=== PATIENT | female | born 1960 | race Caucasian/White ===

== ENCOUNTER 2016-08-09 09:46 | Outpatient (CLI) | payer MEDICAID | END 2016-08-09 09:47 | disposition home or self-care (01) | DX: G40.209 Localization-related (focal) (partial) symptomatic epilepsy and epileptic syndromes with complex partial seizures, not intractable, without status epilepticus (principal) ==

== ENCOUNTER 2016-09-08 12:07 | Outpatient (CLI) | payer MEDICAID ==
[2016-09-08] MEDS ORDERED: GADOBUTROL 10 MMOL/10 ML VIAL IVP ONE (13:14)
== END 2016-09-08 12:08 | disposition home or self-care (01) ==
DX: H53.8 Other visual disturbances (principal)
CPT/HCPCS: 70553; A9585

== ENCOUNTER 2016-11-17 10:26 | Outpatient (CLI) | payer MEDICAID | END 2016-11-17 10:27 | disposition home or self-care (01) | DX: F43.12 Post-traumatic stress disorder, chronic (principal); F33.2 Major depressive disorder, recurrent severe without psychotic features; G47.00 Insomnia, unspecified ==

== ENCOUNTER 2017-01-09 15:39 | Emergency (ER) | payer MEDICAID ==
--- NOTE | 2017-01-09 15:43 | ED Physician Documentation ---
PD HPI FEMALE - Stated complaint Stated Complaint: FEMALE - History obtained from History obtained from: Patient - History of Present Illness Timing - onset: How many days ago (5) Timing - duration: Days (5) Timing - details: Gradual onset, Still present, Waxing and waning Associated symptoms: Pelvic pain, Vaginal bleeding. No: Fever, Abdominal pain, Back pain, Vaginal pain, Vaginal discharge, Genital sore/lesion, Dysuria, Urinary frequency Contributing factors: Tubal ligation. No: , Hysterectomy, Sexually active Similar symptoms before: Has not had sx before (has slightly irregular menses still, but had onset 5 days ago of menstrual type bleeding which increased to brisker and brighter red. She states she is only using about 5 pads daily, but the are saturated. Feeling of general lightheadedness. No fever, no vaginal discharge.) Recently seen: Not recently seen Review of Systems Constitutional: denies: Fever, Chills Throat: denies: Sore throat Cardiac: denies: Chest pain / pressure Respiratory: denies: Dyspnea, Cough GI: denies: Vomiting, Diarrhea : denies: Dysuria, Frequency Neurologic: reports: Generalized weakness. denies: Near syncope Endocrine: denies: Weight loss, Weight gain, Easy bruising / bleeding Immunocompromised: denies: Immunocompromised PD PAST MEDICAL HISTORY - Past Medical History Cardiovascular: None Respiratory: None Neuro: Head injury, Seizure disorder Endocrine/Autoimmune: None GI: GERD, Other HEENT: None Psych: Depression, Bipolar disorder, Other Derm: None - Past Surgical History Past Surgical History: Yes Ortho: Other - Present Medications Home Medications: Ambulatory Orders Medication Instructions Recorded Confirmed Cholecalciferol (Vitamin D3) 5,000 units PO ONCE 01/28/14 08/07/15 [Vitamin D] Docusate Sodium 100 mg PO BID 01/28/14 08/07/15 Lamotrigine [Lamictal] 200 mg PO BID 01/28/14 08/07/15 Levetiracetam [Keppra] 1,500 mg PO BID 01/28/14 08/07/15 Magnesium 250 mg PO QPM 01/28/14 08/07/15 Multivitamin [Multivitamins] 1 tab PO DAILY 01/28/14 08/07/15 Thiamine HCl [Vitamin B-1] 50 mg PO DAILY 01/28/14 08/07/15 Tolterodine [Detrol LA] 2 mg PO BID 01/28/14 08/07/15 raNITIdine [Zantac] 150 mg PO BID 01/28/14 08/07/15 Albuterol Sulfate [Proair Hfa 8.5 gm IH QID #1 hfa.aer.ad 08/07/15 Inhaler] Hydrocodone/Acetaminophen [[place] 1 each PO Q6H PRN #20 tablet 08/07/15 5-325 Tablet] Oseltamivir [Tamiflu] 75 mg PO BID #10 capsule 08/07/15 predniSONE [Deltasone] 40 mg PO DAILY 5 Days 08/07/15 Hydrocodone/Acetaminophen [[place] 1 each PO Q6H PRN #10 tablet 01/09/17 5-325 Tablet] Medroxyprogesterone Acetate 5 mg PO DAILY #5 tablet 01/09/17 [Provera] Naproxen 375 mg PO BID #15 tablet 01/09/17 - Allergies Allergies/Adverse Reactions: Allergies Allergy/AdvReac Type Severity Reaction Status Date / Time codeine Allergy Unknown Verified 01/09/17 15:49 gluten Allergy Unknown Verified 01/09/17 15:49 Penicillins Allergy Unknown Verified 01/09/17 15:49 - Social History Does the pt smoke?: No Smoking Status: Never smoker Does the pt drink ETOH?: No Does the pt have substance abuse?: No - POLST Patient has POLST: No PD ED PE NORMAL - Vitals Vital signs reviewed: Yes - General General: Alert and oriented X 3, No acute distress, Well developed/nourished - Neck Neck: Supple, no meningeal sign, No adenopathy - Cardiac Cardiac: RRR, No murmur - Respiratory Respiratory: Clear bilaterally - Abdomen Abdomen: Normal bowel sounds, Soft, Non distended, No organomegaly, Other (mild suprapubic tenderness without guarding.) - Female Female : Deferred - Derm Derm: Normal color, Warm and dry - Neuro Neuro: Alert and oriented X 3, No motor deficit, Normal speech Results - Vitals Vitals: Vital Signs - 24 hr 01/09/17 01/09/17 01/09/17 15:47 18:36 18:43 Temperature 36.7 C 36.6 C Heart Rate 56 L 49 L 55 L Respiratory 18 18 Rate Blood Pressure 129/85 H 140/51 H O2 Saturation 98 99 Oxygen O2 Source Room air - Labs Labs: Laboratory Tests 01/09/17 01/09/17 01/09/17 16:33 16:33 16:46 WBC 6.6 RBC 3.76 L Hgb 11.2 L Hct 34.3 L MCV 91.0 MCH 29.9 MCHC 32.8 RDW 13.8 Plt Count 236 MPV 8.5 Neut # 3.4 Lymph # 2.1 [place] # 0.8 Eos # 0.3 Baso # 0.1 Absolute Nucleated RBC 0.00 Nucleated RBCs 0.0 Sodium 138 Potassium 4.4 Chloride 104 Carbon Dioxide 27 Anion Gap 7.0 BUN 10 Creatinine 1.0 Estimated GFR (MDRD) 58 L Glucose 98 Calcium 9.2 Total Bilirubin 0.8 AST 19 ALT 20 Alkaline Phosphatase 85 Total Protein 7.1 Albumin 3.9 Globulin 3.2 Albumin/Globulin Ratio 1.2 Lipase 15 L Urine Color YELLOW Urine Clarity HAZY Urine pH 6.5 Ur Specific [place] <=1.005 Urine Protein NEGATIVE Urine Glucose (UA) NEGATIVE Urine Ketones NEGATIVE Urine Occult Blood LARGE H Urine Nitrite NEGATIVE Urine Bilirubin NEGATIVE Urine Urobilinogen 0.2 (NORMAL) Ur Leukocyte Esterase NEGATIVE Urine RBC 11-25 H Urine WBC 0-3 Ur Squamous Epith Cells NONE SEEN Urine Bacteria None Seen Ur Microscopic Review INDICATED Urine Culture Comments NOT INDICATED - Rads (name of study) pelvic U/S Radiology: Prelim report reviewed (posterior fibroid. Otherwise heterogenous endometrium without acute findings. ) PD MEDICAL DECISION MAKING - ED course Complexity details: reviewed results, considered differential, d/w patient Departure - Departure Disposition: 01 Home, Self Care Clinical Impression: Dysfunctional uterine bleeding Uterine fibroid Qualifiers: Uterine leiomyoma location: intramural Qualified Code(s): D25.1 - Intramural leiomyoma of uterus Condition: Stable Record reviewed to determine appropriate education?: Yes Instructions: ED Bleed Irregular Vaginal Follow-Up: Zenobia Rasheed ARNP [Primary Care Provider] - Mynor Savage MD [Provider Admit Priv/Credential] - Prescriptions: Naproxen 375 mg PO BID #15 tablet Hydrocodone/Acetaminophen [[place] 5-325 Tablet] 1 each PO Q6H PRN #10 tablet PRN Reason: Pain Medroxyprogesterone Acetate [Provera] 5 mg PO DAILY #5 tablet Comments: Drink lots of fluids. Naproxen twice daily for a week. Provera daily for 5 days. Add Tylenol or hydrocodone as needed for pains. Call [facility] and follow up with one of their providers in the next few days. Discharge Date/Time: 01/09/17 18:44
[2017-01-09] MEDS ORDERED: KETOROLAC 60 MG/2 ML VIAL IVP STA (16:21)
[2017-01-09] MEDS ORDERED: KETOROLAC 30 MG/ML VIAL ONE (16:23)
[2017-01-09 16:51] LABS: BASOPHILS # (AUTO) 0.1 10^3/uL (0.0-0.1); EOSINOPHILS # (AUTO) 0.3 10^3/uL (0.0-0.7); EOSINOPHILS % (AUTO) 4.3 %; HCT - HEMATOCRIT 34.3 % (37.0-47.0); HGB - HEMOGLOBIN 11.2 g/dL (12.0-16.0); LYMPHOCYTES # (AUTO) 2.1 10^3/uL (1.5-3.5); LYMPHOCYTES % (AUTO) 31.5 %; MEAN CORPUSCULAR HEMOGLOBIN 29.9 pg (27.0-31.0); MEAN CORPUSCULAR HGB CONC 32.8 g/dL (32.0-36.0); MEAN PLATELET VOLUME 8.5 fL (7.9-10.8); MONOCYTES # (AUTO) 0.8 10^3/uL (0.0-1.0); MONOCYTES % (AUTO) 11.5 %; NEUTROPHILS # (AUTO) 3.4 10^3/uL (1.5-6.6); NEUTROPHILS % (AUTO) 51.7 %; RED BLOOD COUNT 3.76 10^6/uL (4.20-5.40); RED CELL DISTRIBUTION WIDTH 13.8 % (12.0-15.0); UNCORRECTED WHITE BLOOD COUNT 6.6 x10^3/uL; WHITE BLOOD COUNT 6.6 x10^3/uL (4.8-10.8)
[2017-01-09 17:03] LABS: BILIRUBIN,URINE NEGATIVE (NEGATIVE); PH,URINE 6.5 PH (5.0-7.5)
[2017-01-09 17:04] LABS: ALBUMIN/GLOBULIN RATIO 1.2 (1.0-2.2); BILIRUBIN,TOTAL 0.8 mg/dL (0.2-1.0); CALCIUM 9.2 mg/dL (8.5-10.3); POTASSIUM 4.4 mmol/L (3.5-5.0); TOTAL PROTEIN 7.1 g/dL (6.7-8.2)
[2017-01-09 17:20] LABS: UA w/ MICROSCOPIC CHARGE YES
[2017-01-09 17:29] LABS: WBC,URINE 0-3 /HPF (0-5)
[2017-01-09 17:30] LABS: UR CULTURE IF IND NOT INDICATED
--- NOTE | 2017-01-09 18:23 | Ultrasound Preliminary Report ---
Exam: US Pelvic Non OB w/Doppler IMPRESSION: 1. Heterogeneous, irregular endometrium however no hypervascular intracavitary nodule seen. 2. Posterior lower uterine intramural fibroid. 3. Normal left ovary. The right ovary is not visualized. [facility] SITE ID: [id number]
--- NOTE | 2017-01-09 18:25 | Ultrasound Report ---
REVISED: THIS REPORT WAS ORIGINALLY SIGNED ON 01/09/2017 @ 1825. ORDERS LINKED ON 02/20/2017. EXAM: PELVIC ULTRASOUND EXAM DATE: 01/09/2017 05:52 PM. CLINICAL HISTORY: Excessive vaginal bleeding for 5 days. COMPARISON: 04/03/2014 pelvic ultrasound. TECHNIQUE: Realtime transabdominal pelvic scan performed to identify the uterus and adnexa and as an overview of other pelvic structures, followed by transvaginal scan to provide greater detail of the uterus and adnexa, with static image documentation. FINDINGS: Uterus: 8.0 x 4.9 x 6.2 cm, volume 127 cc. Anteverted position. Normal overall size and echotexture. Masses: Posterior 3.1 x 2.2 x 3.1 cm intramural fibroid. Endometrium: 6 mm. Heterogeneous with ill-defined margins. No hypervascular nodules.. Cervix: Unremarkable. Right Ovary: Not seen Left Ovary: 1.9 x 1.4 x 1.3 cm, volume 12.9 cc. Normal echotexture and blood flow. Free Fluid: None. Other: None. IMPRESSION: 1. Heterogeneous, irregular endometrium however no hypervascular intracavitary nodule seen. 2. Posterior lower uterine intramural fibroid. 3. Normal left ovary. The right ovary is not visualized. [facility] Referring Provider Line: [phone] SITE ID: [id number]
[2017-01-09] MEDS ORDERED: HYDROcod/ACETAM 5/325 MG TABLET PO STA (18:34)
[2017-01-09 18:37] VITALS: BP 140/51
[2017-01-09] MEDS ORDERED: HYDROcod/ACETAM 5/325 MG TABLET ONE (18:38)
== END 2017-01-09 18:44 | disposition home or self-care (01) ==
LOC: ED 15:39
DX: N93.8 Other specified abnormal uterine and vaginal bleeding (principal); D25.1 Intramural leiomyoma of uterus; G40.909 Epilepsy, unspecified, not intractable, without status epilepticus
CPT/HCPCS: 36415; 76830; 76856; 80053; 81001; 83690; 85025; 93975; 96374; 99283; 99284; A9270; 81003; 87086

== ENCOUNTER 2017-03-09 10:00 | Outpatient (CLI) | payer MEDICAID | END 2017-03-09 10:01 | disposition home or self-care (01) | LOC: LAB 10:00 | PROVIDERS: ATTEND Psychiatry & Neurology Psychiatry | DX: F43.12 Post-traumatic stress disorder, chronic (principal); F33.2 Major depressive disorder, recurrent severe without psychotic features; G47.00 Insomnia, unspecified | CPT/HCPCS: 36415; 80178 ==

== ENCOUNTER 2017-05-16 09:55 | Outpatient (CLI) | payer MEDICAID ==
[2017-05-16 10:16] LABS: BASOPHILS # (AUTO) 0.1 10^3/uL (0.0-0.1); BASOPHILS % (AUTO) 1.2 %; EOSINOPHILS # (AUTO) 0.2 10^3/uL (0.0-0.7); EOSINOPHILS % (AUTO) 3.2 %; HCT - HEMATOCRIT 37.1 % (37.0-47.0); HGB - HEMOGLOBIN 12.3 g/dL (12.0-16.0); LYMPHOCYTES # (AUTO) 2.2 10^3/uL (1.5-3.5); LYMPHOCYTES % (AUTO) 30.2 %; MEAN CORPUSCULAR HEMOGLOBIN 28.4 pg (27.0-31.0); MEAN CORPUSCULAR HGB CONC 33.2 g/dL (32.0-36.0); MEAN CORPUSCULAR VOLUME 85.6 fL (81.0-99.0); MEAN PLATELET VOLUME 7.9 fL (7.9-10.8); MONOCYTES # (AUTO) 0.7 10^3/uL (0.0-1.0); MONOCYTES % (AUTO) 9.5 %; NEUTROPHILS % (AUTO) 55.9 %; RED BLOOD COUNT 4.33 10^6/uL (4.20-5.40); RED CELL DISTRIBUTION WIDTH 15.8 % (12.0-15.0); UNCORRECTED WHITE BLOOD COUNT 7.2 x10^3/uL; WHITE BLOOD COUNT 7.2 x10^3/uL (4.8-10.8)
[2017-05-16 10:29] LABS: ALBUMIN/GLOBULIN RATIO 1.1 (1.0-2.2); BILIRUBIN,TOTAL 0.6 mg/dL (0.2-1.0); BUN - BLOOD UREA NITROGEN 15 mg/dL (6-20); CALCIUM 9.3 mg/dL (8.5-10.3); CARBON DIOXIDE - CO2 25 mmol/L (21-32); CHLORIDE 105 mmol/L (101-111); CHOL/HDL RATIO 2.5 (<4.4); CHOLESTEROL 154 mg/dL; CREATININE 1.1 mg/dL (0.4-1.0); GFR - MDRD 52 (>89); GLUCOSE 128 mg/dL (70-100); HDL CHOLESTEROL 62 mg/dL; LDL/HDL RATIO 1.1 (<4.4); POTASSIUM 4.1 mmol/L (3.5-5.0); SODIUM 138 mmol/L (135-145); TOTAL PROTEIN 7.5 g/dL (6.7-8.2); TRIGLYCERIDES 103 mg/dL; VLDL CHOLESTEROL 21 mg/dL
== END 2017-05-16 09:56 | disposition home or self-care (01) ==
LOC: LAB 09:55
PROVIDERS: ATTEND Nurse Practitioner Family
DX: R56.9 Unspecified convulsions (principal); Z51.81 Encounter for therapeutic drug level monitoring; E78.5 Hyperlipidemia, unspecified
CPT/HCPCS: 36415; 80050; 80061

== ENCOUNTER 2017-05-18 09:42 | Outpatient (CLI) | payer MEDICAID ==
[2017-05-18 10:29] LABS: HEMOGLOBIN A1C 0.59 g/dL
== END 2017-05-18 09:43 | disposition home or self-care (01) ==
LOC: LAB 09:42
PROVIDERS: ATTEND Nurse Practitioner Family
DX: R73.9 Hyperglycemia, unspecified (principal)
CPT/HCPCS: 36415; 83036

== ENCOUNTER 2017-06-30 13:05 | Outpatient (CLI) | payer MEDICAID ==
[2017-06-30 18:40] LABS: BASOPHILS # (AUTO) 0.1 10^3/uL (0.0-0.1); EOSINOPHILS # (AUTO) 0.2 10^3/uL (0.0-0.7); EOSINOPHILS % (AUTO) 3.2 %; HCT - HEMATOCRIT 43.3 % (37.0-47.0); HGB - HEMOGLOBIN 14.2 g/dL (12.0-16.0); LYMPHOCYTES # (AUTO) 2.2 10^3/uL (1.5-3.5); LYMPHOCYTES % (AUTO) 27.8 %; MEAN CORPUSCULAR HEMOGLOBIN 29.1 pg (27.0-31.0); MEAN CORPUSCULAR HGB CONC 32.7 g/dL (32.0-36.0); MEAN CORPUSCULAR VOLUME 88.8 fL (81.0-99.0); MEAN PLATELET VOLUME 9.4 fL (7.9-10.8); MONOCYTES # (AUTO) 0.5 10^3/uL (0.0-1.0); MONOCYTES % (AUTO) 6.8 %; NEUTROPHILS # (AUTO) 4.8 10^3/uL (1.5-6.6); NEUTROPHILS % (AUTO) 61.2 %; RED BLOOD COUNT 4.87 10^6/uL (4.20-5.40); UNCORRECTED WHITE BLOOD COUNT 7.8 x10^3/uL; WHITE BLOOD COUNT 7.8 x10^3/uL (4.8-10.8)
[2017-06-30 18:47] LABS: ALBUMIN/GLOBULIN RATIO 1.2 (1.0-2.2); BILIRUBIN,TOTAL 0.5 mg/dL (0.2-1.0); BUN - BLOOD UREA NITROGEN 14 mg/dL (6-20); CARBON DIOXIDE - CO2 25 mmol/L (21-32); CHLORIDE 104 mmol/L (101-111); GFR - MDRD 58 (>89); GLUCOSE 115 mg/dL (70-100); POTASSIUM 4.4 mmol/L (3.5-5.0); SODIUM 138 mmol/L (135-145)
== END 2017-06-30 13:06 | disposition home or self-care (01) ==
LOC: LAB.F 13:05
PROVIDERS: ATTEND Nurse Practitioner Family
DX: I49.8 Other specified cardiac arrhythmias (principal); R00.1 Bradycardia, unspecified; R55 Syncope and collapse; K90.0 Celiac disease
CPT/HCPCS: 36415; 80050; 80178; 85651; 93005

== ENCOUNTER 2017-07-03 10:56 | Emergency (ER) | payer MEDICAID ==
[2017-07-03 11:41] VITALS: BP 145/71
[2017-07-03] MEDS ORDERED: SODIUM CHLORIDE 0.9% 1,000 ML IV ONE (12:27)
[2017-07-03] MEDS ORDERED: MECLIZINE 12.5 MG TABLET PO STA (12:27)
--- NOTE | 2017-07-03 12:32 | ED Physician Documentation ---
PD HPI ALTERED MENTAL STATUS - Stated complaint Stated Complaint: DIZZY/LIGHTHEAD - Chief complaint Chief Complaint: General - History obtained from History obtained from: Patient - History of Present Illness Timing - onset: How many days ago (5-6) Timing - duration: Days (5-6) Timing - details: Gradual onset, Still present, Waxing and waning Quality / character: Other (sleepy, dizzy (both vertigo and lightheaded), feeling slightly confused.) Associated symptoms: General weakness. No: Fever, Headache, Stiff neck, Focal weakness, Seizure activity, Syncope Contributing factors: Recent med change (she had had Requip and Prazosin added by PCP apparently about 2 weeks ago by verbal from clinic when called them, and psych? added Elavil for sleep.) Basline status: Alert and oriented X 3, Ambulatory Similar symptoms before: Has not had sx before Recently seen: Clinic Review of Systems Constitutional: denies: Fever, Chills Eyes: denies: Loss of vision, Decreased vision, Discharge, Irritation Ears: denies: Loss of hearing, Ear pain, Tinnitus/ringing Nose: denies: Rhinorrhea / runny nose, Congestion Throat: denies: Sore throat GI: reports: Nausea. denies: Abdominal Pain, Vomiting, Diarrhea : denies: Dysuria, Frequency Skin: denies: Rash Neurologic: reports: Generalized weakness, Confused, Other (sleepy). denies: Focal weakness, Numbness, Headache, Head injury PD PAST MEDICAL HISTORY - Past Medical History Cardiovascular: None Respiratory: None Neuro: Head injury, Seizure disorder Endocrine/Autoimmune: None GI: GERD, Other HEENT: None Psych: Depression, Bipolar disorder, Other Derm: None - Past Surgical History Past Surgical History: Yes Ortho: Other - Present Medications Home Medications: Ambulatory Orders Medication Instructions Recorded Confirmed Cholecalciferol (Vitamin D3) 5,000 units PO ONCE 01/28/14 07/03/17 [Vitamin D] Docusate Sodium 100 mg PO BID 01/28/14 07/03/17 Levetiracetam [Keppra] 1,500 mg PO BID 01/28/14 07/03/17 Magnesium 250 mg PO QPM 01/28/14 07/03/17 Multivitamin [Multivitamins] 1 tab PO DAILY 01/28/14 07/03/17 Thiamine HCl [Vitamin B-1] 50 mg PO DAILY 01/28/14 07/03/17 Tolterodine [Detrol LA] 2 mg PO BID 01/28/14 07/03/17 lamoTRIgine [Lamictal] 200 mg PO BID 01/28/14 07/03/17 raNITIdine [Zantac] 150 mg PO BID 01/28/14 07/03/17 Hydrocodone/Acetaminophen [[place] 1 each PO Q6H PRN #20 tablet 08/07/15 07/03/17 5-325 Tablet] Oseltamivir [Tamiflu] 75 mg PO BID #10 capsule 08/07/15 07/03/17 predniSONE [Deltasone] 40 mg PO DAILY 5 Days tablet 08/07/15 07/03/17 Hydrocodone/Acetaminophen [[place] 1 each PO Q6H PRN #10 tablet 01/09/17 07/03/17 5-325 Tablet] Medroxyprogesterone Acetate 5 mg PO DAILY #5 tablet 01/09/17 07/03/17 [Provera] Naproxen 375 mg PO BID #15 tablet 01/09/17 07/03/17 Amitriptyline HCl 1 tab PO DAILY 07/03/17 07/03/17 Meclizine [Antivert] 25 mg PO Q6H PRN #30 tablet 07/03/17 - Allergies Allergies/Adverse Reactions: Allergies Allergy/AdvReac Type Severity Reaction Status Date / Time codeine Allergy Unknown Verified 01/09/17 15:49 gluten Allergy Unknown Verified 01/09/17 15:49 Penicillins Allergy Unknown Verified 01/09/17 15:49 - Social History Does the pt smoke?: No Smoking Status: Never smoker Does the pt drink ETOH?: No Does the pt have substance abuse?: No - POLST Patient has POLST: No PD ED PE NORMAL - Vitals Vital signs reviewed: Yes - General General: Alert and oriented X 3, No acute distress, Well developed/nourished - HEENT HEENT: PERRL, EOMI (mild nystagmus to right), Ears normal, Moist mucous membranes, Pharynx benign - Neck Neck: Supple, no meningeal sign, No adenopathy - Cardiac Cardiac: No murmur. No: RRR (regular and in 40s-50s without block. BP good. 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 No: ST elevation c/w ischemia, ST depression Compare to prior EKG: Old EKG unavailable - Labs Labs: Laboratory Tests 07/03/17 07/03/17 07/03/17 12:30 13:15 13:15 WBC 8.0 RBC 4.64 Hgb 13.7 Hct 40.5 MCV 87.3 MCH 29.5 MCHC 33.8 RDW 15.0 Plt Count 237 MPV 8.4 Neut # 4.9 Lymph # 2.1 [place] # 0.7 Eos # 0.2 Baso # 0.1 Absolute Nucleated RBC 0.00 Nucleated RBC % 0.0 Sodium 137 Potassium 4.1 Chloride 102 Carbon Dioxide 25 Anion Gap 10.0 BUN 17 Creatinine 0.9 Estimated GFR (MDRD) 65 L Glucose 136 H Calcium 10.2 Magnesium 2.0 Total Bilirubin 0.5 AST 24 ALT 24 Alkaline Phosphatase 75 Troponin I B-Natriuretic Peptide Total Protein 7.7 Albumin 4.1 Globulin 3.6 Albumin/Globulin Ratio 1.1 Lipase 13 L Vitamin B12 Urine Color YELLOW Urine Clarity CLEAR Urine pH 6.5 Ur Specific [place] <=1.005 Urine Protein NEGATIVE Urine Glucose (UA) NEGATIVE Urine Ketones NEGATIVE Urine Occult Blood NEGATIVE Urine Nitrite NEGATIVE Urine Bilirubin NEGATIVE Urine Urobilinogen 0.2 (NORMAL) Ur Leukocyte Esterase NEGATIVE Ur Microscopic Review NOT INDICATED Urine Culture Comments NOT INDICATED Last Dose Date Last Dose Time Urine Opiates Screen NEGATIVE Ur Oxycodone Screen NEGATIVE Urine Methadone Screen NEGATIVE Ur Propoxyphene Screen NEGATIVE Ur Barbiturates Screen NEGATIVE Ur Tricyclics Screen NEGATIVE Ur Phencyclidine Scrn NEGATIVE Ur Amphetamine Screen NEGATIVE U Methamphetamines Scrn NEGATIVE U Benzodiazepines Scrn NEGATIVE [place] Urine Cocaine Screen NEGATIVE U Cannabinoids Screen NEGATIVE 07/03/17 07/03/17 07/03/17 13:15 13:15 13:15 WBC RBC Hgb Hct MCV MCH MCHC RDW Plt Count MPV Neut # Lymph # [place] # Eos # Baso # Absolute Nucleated RBC Nucleated RBC % Sodium Potassium Chloride Carbon Dioxide Anion Gap BUN Creatinine Estimated GFR (MDRD) Glucose Calcium Magnesium Total Bilirubin AST ALT Alkaline Phosphatase Troponin I < 0.04 B-Natriuretic Peptide 11 Total Protein Albumin Globulin Albumin/Globulin Ratio Lipase Vitamin B12 1124 H Urine Color Urine Clarity Urine pH Ur Specific [place] Urine Protein Urine Glucose (UA) Urine Ketones Urine Occult Blood Urine Nitrite Urine Bilirubin Urine Urobilinogen Ur Leukocyte Esterase Ur Microscopic Review Urine Culture Comments Last Dose Date Last Dose Time Urine Opiates Screen Ur Oxycodone Screen Urine Methadone Screen Ur Propoxyphene Screen Ur Barbiturates Screen Ur Tricyclics Screen Ur Phencyclidine Scrn Ur Amphetamine Screen U Methamphetamines Scrn U Benzodiazepines Scrn [place] Urine Cocaine Screen U Cannabinoids Screen 07/03/17 13:15 WBC RBC Hgb Hct MCV MCH MCHC RDW Plt Count MPV Neut # Lymph # [place] # Eos # Baso # Absolute Nucleated RBC Nucleated RBC % Sodium Potassium Chloride Carbon Dioxide Anion Gap BUN Creatinine Estimated GFR (MDRD) Glucose Calcium Magnesium Total Bilirubin AST ALT Alkaline Phosphatase Troponin I B-Natriuretic Peptide Total Protein Albumin Globulin Albumin/Globulin Ratio Lipase Vitamin B12 Urine Color Urine Clarity Urine pH Ur Specific [place] Urine Protein Urine Glucose (UA) Urine Ketones Urine Occult Blood Urine Nitrite Urine Bilirubin Urine Urobilinogen Ur Leukocyte Esterase Ur Microscopic Review Urine Culture Comments Last Dose Date Unknown Last Dose Time Unknown Urine Opiates Screen Ur Oxycodone Screen Urine Methadone Screen Ur Propoxyphene Screen Ur Barbiturates Screen Ur Tricyclics Screen Ur Phencyclidine Scrn Ur Amphetamine Screen U Methamphetamines Scrn U Benzodiazepines Scrn [place] 0.35 Urine Cocaine Screen U Cannabinoids Screen PD MEDICAL DECISION MAKING - ED course Complexity details: re-evaluated patient (feeling better with Meclizine. The heart rate remains at 40s-50s with good blood pressure and she is feeling dizzy with it and then better with Meclizine and HR still same. BP good throughout. So I don't think the heart rate is symptomatic. I reviewed her meds in [facility] and see all of her symptoms as side effects of her newer meds. Problem is which one of them as she has had 3 new ones in past couple of weeks. Will need to hold all and then could reintroduce one at a time.), considered differential, d/w patient Departure - Departure Disposition: 01 Home, Self Care Clinical Impression: Vertigo, Somnolence, Bradycardia Condition: Stable Record reviewed to determine appropriate education?: Yes Instructions: ED Vertigo Unspecified Follow-Up: Zenobia Rasheed ARNP [Primary Care Provider] - Prescriptions: Meclizine [Antivert] 25 mg PO Q6H PRN #30 tablet PRN Reason: Vertigo Comments: The clinic says the newest medicines you were prescribed for Requip and Prazosin and you also had the newer amitriptyline. The amitriptyline can certainly cause some of the symptoms you are having and so would continue to not take that. However the prazosin is associated with dizziness and so may be causing your symptoms. The Requip is associated small percentage of the time with slow heart rate and dizziness as well. So I would for now stop both the prazosin and the Requip. Follow-up with your primary care in the next 2-3 days. Use meclizine if needed for dizziness as it did seem to help here in the ER. Return if worsening symptoms. Your primary care may also want you to have a heart monitor that you wear for a week or so to see if your heart rate goes any slower than what we seen here. However your blood pressure is good and so I do not think the heart rate itself is causing your symptoms. Discharge Date/Time: 07/03/17 14:01
[2017-07-03 12:47] LABS: BILIRUBIN,URINE NEGATIVE (NEGATIVE); PH,URINE 6.5 PH (5.0-7.5)
[2017-07-03] MEDS ORDERED: MECLIZINE 12.5 MG TABLET PO ONE (12:47)
[2017-07-03 12:49] LABS: UA CHARGE (STRIP ONLY) YES; UR CULTURE IF IND NOT INDICATED
[2017-07-03 13:23] LABS: BASOPHILS # (AUTO) 0.1 10^3/uL (0.0-0.1); BASOPHILS % (AUTO) 0.8 %; EOSINOPHILS # (AUTO) 0.2 10^3/uL (0.0-0.7); EOSINOPHILS % (AUTO) 2.9 %; HCT - HEMATOCRIT 40.5 % (37.0-47.0); HGB - HEMOGLOBIN 13.7 g/dL (12.0-16.0); LYMPHOCYTES # (AUTO) 2.1 10^3/uL (1.5-3.5); LYMPHOCYTES % (AUTO) 26.7 %; MEAN CORPUSCULAR HEMOGLOBIN 29.5 pg (27.0-31.0); MEAN CORPUSCULAR HGB CONC 33.8 g/dL (32.0-36.0); MEAN CORPUSCULAR VOLUME 87.3 fL (81.0-99.0); MEAN PLATELET VOLUME 8.4 fL (7.9-10.8); MONOCYTES # (AUTO) 0.7 10^3/uL (0.0-1.0); MONOCYTES % (AUTO) 8.7 %; NEUTROPHILS # (AUTO) 4.9 10^3/uL (1.5-6.6); NEUTROPHILS % (AUTO) 60.9 %; RED BLOOD COUNT 4.64 10^6/uL (4.20-5.40)
[2017-07-03 13:37] LABS: ALBUMIN/GLOBULIN RATIO 1.1 (1.0-2.2); BILIRUBIN,TOTAL 0.5 mg/dL (0.2-1.0); CALCIUM 10.2 mg/dL (8.5-10.3); CREATININE 0.9 mg/dL (0.4-1.0); POTASSIUM 4.1 mmol/L (3.5-5.0); TOTAL PROTEIN 7.7 g/dL (6.7-8.2)
== END 2017-07-03 14:01 | disposition home or self-care (01) ==
LOC: ED 10:56
DX: R42 Dizziness and giddiness (principal); R40.0 Somnolence; R00.1 Bradycardia, unspecified; G40.909 Epilepsy, unspecified, not intractable, without status epilepticus; K21.9 Gastro-esophageal reflux disease without esophagitis
CPT/HCPCS: 36415; 80053; 80178; 80306; 81003; 82607; 83690; 83735; 83880; 84484; 85025; 93005; 96360; 99283; 99284; A9270; 81001; 87086

== ENCOUNTER 2017-08-09 09:55 | Outpatient (CLI) | payer MEDICAID ==
[2017-08-09 10:40] LABS: CREATININE 1.1 mg/dL (0.4-1.0)
[2017-08-09 11:59] LABS: LITHIUM 0.12 mmol/L
== END 2017-08-09 09:56 | disposition home or self-care (01) ==
LOC: LAB 09:55
PROVIDERS: ATTEND Psychiatry & Neurology Psychiatry
DX: F43.12 Post-traumatic stress disorder, chronic (principal); F33.2 Major depressive disorder, recurrent severe without psychotic features; G47.00 Insomnia, unspecified
CPT/HCPCS: 36415; 80175; 80178; 82565

== ENCOUNTER 2017-09-14 13:30 | Outpatient (CLI) | payer MEDICAID | END 2017-09-14 23:59 | disposition home or self-care (01) | LOC: RT.S 13:30 | PROVIDERS: ATTEND Nurse Practitioner Family | DX: R00.1 Bradycardia, unspecified (principal) | CPT/HCPCS: 93005 ==

== ENCOUNTER 2017-10-31 10:23 | Outpatient (CLI) | payer MEDICAID ==
--- NOTE | 2017-10-31 12:57 | XRAY Report ---
MODIFIED BARIUM SWALLOW WITH SPEECH PATHOLOGY: 10/31/2017 HISTORY: Chronic difficulty swallowing. TECHNIQUE: The examination is performed by Speech Pathology. FLUOROSCOPY TIME: 1 minute 31 seconds. NUMBER OF SERIES: 10. FINDINGS/IMPRESSION: NO EVIDENCE OF PENETRATION OR ASPIRATION. SWALLOWING MECHANISM PROCEEDS NORMALLY. SEE FORMAL SPEECH PATHOLOGY REPORT. TD: 10/31/2017 12:56
== END 2017-10-31 10:24 | disposition home or self-care (01) ==
LOC: DI 10:23
PROVIDERS: ATTEND Nurse Practitioner Family
DX: R13.10 Dysphagia, unspecified (principal); J31.2 Chronic pharyngitis
CPT/HCPCS: 74230

== ENCOUNTER 2017-11-22 09:51 | Outpatient (CLI) | payer MEDICAID ==
[2017-11-22 10:51] LABS: CREATININE 1.1 mg/dL (0.4-1.0)
[2017-11-22 12:25] LABS: LITHIUM 0.38 mmol/L
== END 2017-11-22 09:52 | disposition home or self-care (01) ==
LOC: LAB 09:51
PROVIDERS: ATTEND Psychiatry & Neurology Psychiatry
DX: F43.12 Post-traumatic stress disorder, chronic (principal); F33.2 Major depressive disorder, recurrent severe without psychotic features; G47.00 Insomnia, unspecified
CPT/HCPCS: 36415; 80175; 80178; 82565

== ENCOUNTER 2018-04-09 17:20 | Outpatient (CLI) | payer MEDICAID | END 2018-04-09 17:21 | disposition home or self-care (01) | LOC: RT.S 17:20 | PROVIDERS: ATTEND Nurse Practitioner Family | DX: R00.1 Bradycardia, unspecified (principal) | CPT/HCPCS: 93005 ==

== ENCOUNTER 2018-04-09 18:07 | Emergency (ER) | payer MEDICAID ==
[2018-04-09] MEDS ORDERED: ATROPINE ABBOJECT 0.5 MG/5 ML SYRINGE IVP STA (18:29)
[2018-04-09] MEDS ORDERED: ATROPINE ABBOJECT 1 MG/10 ML SYRINGE IVP STA ×3 (18:31→23:08)
--- NOTE | 2018-04-09 18:32 | ED Physician Documentation ---
History of Present Illness - Stated complaint Stated Complaint: LOW HR - Chief complaint Chief Complaint: Cardiac - History obtained from History obtained from: Patient - History of Present Illness Timing: Other (57 yo woman with bipolar d/o on lithium 300mg / night. Has had 2 days of dizzyness/presyncope. No chest pain or dyspnea. Seen at PMD today, noted to have worse SI ballard normal with plan. But noted to be v braycardic and sent here for eval. 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).) Review of Systems Constitutional: reports: Reviewed and negative Nose: reports: Reviewed and negative Throat: reports: Reviewed and negative Cardiac: denies: Chest pain / pressure, Palpitations, Pedal edema, Calf pain Respiratory: denies: Dyspnea, Cough GI: denies: Abdominal Pain, Nausea, Vomiting PD PAST MEDICAL HISTORY - Past Medical History Cardiovascular: None Respiratory: None Endocrine/Autoimmune: None GI: GERD, Other HEENT: None Psych: Depression, Bipolar disorder, Other Derm: None - Past Surgical History Past Surgical History: Yes Ortho: Other - Present Medications Home Medications: Ambulatory Orders Medication Instructions Recorded Confirmed Cholecalciferol (Vitamin D3) 5,000 units PO ONCE 01/28/14 04/09/18 [Vitamin D] Docusate Sodium 100 mg PO BID 01/28/14 04/09/18 Levetiracetam [Keppra] 1,500 mg PO BID 01/28/14 04/09/18 Magnesium 250 mg PO QPM 01/28/14 04/09/18 Multivitamin [Multivitamins] 1 tab PO DAILY 01/28/14 04/09/18 Thiamine HCl [Vitamin B-1] 50 mg PO DAILY 01/28/14 04/09/18 lamoTRIgine [Lamictal] 200 mg PO BID 01/28/14 04/09/18 Amitriptyline HCl 1 tab PO DAILY 07/03/17 04/09/18 [place] Carbonate 300 mg PO DAILY 04/09/18 04/09/18 Prazosin [Minipress] 1 mg PO DAILY 04/09/18 04/09/18 - Allergies Allergies/Adverse Reactions: Allergies Allergy/AdvReac Type Severity Reaction Status Date / Time codeine Allergy Unknown Verified 01/09/17 15:49 gluten Allergy Unknown Verified 01/09/17 15:49 Penicillins Allergy Unknown Verified 01/09/17 15:49 - Social History Does the pt smoke?: No Smoking Status: Never smoker Does the pt drink ETOH?: No Does the pt have substance abuse?: No - Family History Family history: reports: Non contributory - POLST Patient has POLST: No PD ED PE NORMAL - Vitals Vital signs reviewed: Yes - General General: Alert and oriented X 3, No acute distress - HEENT HEENT: PERRL, EOMI - Neck Neck: Supple, no meningeal sign, No bony TTP - Cardiac Cardiac: Other (v bradycardic) - Respiratory Respiratory: No respiratory distress, Clear bilaterally - Abdomen Abdomen: Normal bowel sounds, Soft, Non tender - Back Back: No CVA TTP, No spinal TTP - Derm Derm: Normal color, Warm and dry - Extremities Extremities: No edema, No calf tenderness / cord - Neuro Neuro: Alert and oriented X 3, Normal speech - Psych Psych: Normal mood, Normal affect Results - Vitals Vitals: Vital Signs - 24 hr 04/09/18 04/09/18 04/09/18 18:13 18:39 19:20 Temperature 36.0 C L Heart Rate 30 L 58 L 43 L Respiratory 12 18 19 Rate Blood Pressure 144/78 H 194/76 H 156/83 H O2 Saturation 100 100 100 04/09/18 04/09/18 04/09/18 19:45 20:15 20:45 Temperature Heart Rate 57 L 48 L 47 L Respiratory 20 16 17 Rate Blood Pressure 166/89 H 141/86 H 149/86 H O2 Saturation 100 98 99 04/09/18 22:30 Temperature Heart Rate 42 L Respiratory 19 Rate Blood Pressure 152/80 H O2 Saturation 98 Oxygen O2 Source Room air - EKG (time done) 1818 Rate: Rate (enter#) (30) Rhythm: Other (junctional, I do not see sinus node activity.) [place]: Normal Intervals: Normal OK QRS: Normal Ischemia: Normal ST segments Computer interpretation: Agree with computer - Labs Labs: Laboratory Tests 04/09/18 04/09/18 04/09/18 18:37 18:37 18:37 WBC 7.4 RBC 4.58 Hgb 13.7 Hct 41.3 MCV 90.2 MCH 29.9 MCHC 33.2 RDW 14.1 Plt Count 227 MPV 8.6 Neut # (Auto) 4.3 Lymph # (Auto) 2.3 [place] # (Auto) 0.5 Eos # (Auto) 0.2 Baso # (Auto) 0.1 Absolute Nucleated RBC 0.00 Nucleated RBC % 0.0 Manual Slide Review Indicated Platelet Estimate NORMAL (130-450,000) Platelet Morphology 1+ GIANT PLATELETS RBC Morph Micro Appear NORMAL APPEARANCE Sodium 136 Potassium 3.9 Chloride 104 Carbon Dioxide 25 Anion Gap 7.0 BUN 9 Creatinine 1.0 Estimated GFR (MDRD) 57 L Glucose 104 H Calcium 10.0 Magnesium Total Bilirubin 0.8 AST 23 ALT 29 Alkaline Phosphatase 80 Troponin I < 0.04 Total Protein 7.6 Albumin 4.3 Globulin 3.3 Albumin/Globulin Ratio 1.3 Lipase 30 TSH Last Dose Date Last Dose Time Digoxin Salicylates < 6.0 Urine Opiates Screen Ur Oxycodone Screen Urine Methadone Screen Ur Propoxyphene Screen Acetaminophen < 10 L Ur Barbiturates Screen Ur Tricyclics Screen Ur Phencyclidine Scrn Ur Amphetamine Screen U Methamphetamines Scrn U Benzodiazepines Scrn [place] Urine Cocaine Screen U Cannabinoids Screen Ethyl Alcohol < 5.0 04/09/18 04/09/18 04/09/18 18:37 18:37 19:01 WBC RBC Hgb Hct MCV MCH MCHC RDW Plt Count MPV Neut # (Auto) Lymph # (Auto) [place] # (Auto) Eos # (Auto) Baso # (Auto) Absolute Nucleated RBC Nucleated RBC % Manual Slide Review Platelet Estimate Platelet Morphology RBC Morph Micro Appear Sodium Potassium Chloride Carbon Dioxide Anion Gap BUN Creatinine Estimated GFR (MDRD) Glucose Calcium Magnesium Total Bilirubin AST ALT Alkaline Phosphatase Troponin I Total Protein Albumin Globulin Albumin/Globulin Ratio Lipase TSH 2.88 Last Dose Date UNKNOWN Last Dose Time UNKNOWN Digoxin Salicylates Urine Opiates Screen NEGATIVE Ur Oxycodone Screen NEGATIVE Urine Methadone Screen NEGATIVE Ur Propoxyphene Screen NEGATIVE Acetaminophen Ur Barbiturates Screen NEGATIVE Ur Tricyclics Screen NEGATIVE Ur Phencyclidine Scrn NEGATIVE Ur Amphetamine Screen NEGATIVE U Methamphetamines Scrn NEGATIVE U Benzodiazepines Scrn NEGATIVE [place] 0.31 Urine Cocaine Screen NEGATIVE U Cannabinoids Screen NEGATIVE Ethyl Alcohol 04/09/18 04/09/18 20:52 20:52 WBC RBC Hgb Hct MCV MCH MCHC RDW Plt Count MPV Neut # (Auto) Lymph # (Auto) [place] # (Auto) Eos # (Auto) Baso # (Auto) Absolute Nucleated RBC Nucleated RBC % Manual Slide Review Platelet Estimate Platelet Morphology RBC Morph Micro Appear Sodium 138 Potassium 4.3 Chloride 105 Carbon Dioxide 27 Anion Gap 6.0 BUN 12 Creatinine 1.1 H Estimated GFR (MDRD) 51 L Glucose 100 Calcium 9.8 Magnesium 2.2 Total Bilirubin AST ALT Alkaline Phosphatase Troponin I Total Protein Albumin Globulin Albumin/Globulin Ratio Lipase TSH Last Dose Date UNKNOWN UNKNOWN Last Dose Time UNKNOWN UNKNOWN Digoxin < 0.2 Salicylates Urine Opiates Screen Ur Oxycodone Screen Urine Methadone Screen Ur Propoxyphene Screen Acetaminophen Ur Barbiturates Screen Ur Tricyclics Screen Ur Phencyclidine Scrn Ur Amphetamine Screen U Methamphetamines Scrn U Benzodiazepines Scrn [place] 0.29 Urine Cocaine Screen U Cannabinoids Screen Ethyl Alcohol PD MEDICAL DECISION MAKING - ED course ED course: Spoke with poison control, they felt it was unlikely that the bradycardia was due to lithium. At that point I did not have a level back up yet. She was administered 0.5 mg of atropine with improvement in her rate into the mid 50s. Her blood pressure remained stable. Her lithium level came back as subtherapeutic giving even further credence to the lithium being unrelated to her bradycardia and she may just have significant bradycardia. The level of her bradycardia would Mandate cardiology consultation for consideration for a pacemaker and [facility] was called at 7:37 PM. Found out quickly thereafter that [facility] was full, called [facility], they were also full. Call [facility]. Also full, [facility] was [facility], [facility]. At 9:05 PM she was accepted the [facility] by Dr. Brayden Bryant, however they do not have a bed available and doubted one would be available tonight. She is in the queue there but pending that I will also call some other places. [facility] had beds and I spoke with the farmworker fryer farm, Dr. Keita who will consult. Defers to the hospitalist team for admission. That was around 9:30 PM. Accepted to the hospitalist team by Dr. Patt Joseph at [facility] at 10:25 PM and cobras were completed. - Critical Care Time(min): 45 Time Includes: Direct patient care, Review records, Reassess patient, Document care, Coordinate care, Medical consult, Family consult for tx dec Data interpretation: Labs, Pulse ox Procedures included in critical care time: Peripheral IV Procedures excluded from critical care time: EKG - Sepsis Event Vital Signs: Vital Signs - 24 hr 04/09/18 04/09/18 04/09/18 18:13 18:39 19:20 Temperature 36.0 C L Heart Rate 30 L 58 L 43 L Respiratory 12 18 19 Rate Blood Pressure 144/78 H 194/76 H 156/83 H O2 Saturation 100 100 100 04/09/18 04/09/18 04/09/18 19:45 20:15 20:45 Temperature Heart Rate 57 L 48 L 47 L Respiratory 20 16 17 Rate Blood Pressure 166/89 H 141/86 H 149/86 H O2 Saturation 100 98 99 04/09/18 22:30 Temperature Heart Rate 42 L Respiratory 19 Rate Blood Pressure 152/80 H O2 Saturation 98 Oxygen O2 Source Room air Departure - Departure Disposition: 02 Transfer Acute Care Hosp Clinical Impression: Bradycardia, Bipolar 1 disorder Condition: Serious
[2018-04-09] MEDS ORDERED: ATROPINE ABBOJECT 1 MG/10 ML SYRINGE IVP ONE (18:35)
[2018-04-09 18:48] LABS: BASOPHILS # (AUTO) 0.1 10^3/uL (0.0-0.1); BASOPHILS % (AUTO) 1.1 %; EOSINOPHILS # (AUTO) 0.2 10^3/uL (0.0-0.7); EOSINOPHILS % (AUTO) 3.1 %; HGB - HEMOGLOBIN 13.7 g/dL (12.0-16.0); LYMPHOCYTES # (AUTO) 2.3 10^3/uL (1.5-3.5); LYMPHOCYTES % (AUTO) 31.2 %; MEAN CORPUSCULAR HEMOGLOBIN 29.9 pg (27.0-31.0); MEAN CORPUSCULAR HGB CONC 33.2 g/dL (32.0-36.0); MEAN CORPUSCULAR VOLUME 90.2 fL (81.0-99.0); MEAN PLATELET VOLUME 8.6 fL (7.9-10.8); MONOCYTES # (AUTO) 0.5 10^3/uL (0.0-1.0); MONOCYTES % (AUTO) 6.8 %; NEUTROPHILS # (AUTO) 4.3 10^3/uL (1.5-6.6); NEUTROPHILS % (AUTO) 57.8 %; PLT - PLATELET COUNT 227 10^3/uL (130-450); RED BLOOD COUNT 4.58 10^6/uL (4.20-5.40); RED CELL DISTRIBUTION WIDTH 14.1 % (12.0-15.0); WHITE BLOOD COUNT 7.4 x10^3/uL (4.8-10.8)
[2018-04-09 19:00] LABS: ALBUMIN 4.3 g/dL (3.2-5.5); ALBUMIN/GLOBULIN RATIO 1.3 (1.0-2.2); ALKALINE PHOSPHATASE 80 IU/L (42-121); ALT ALANINE AMINOTRANSFERASE 29 IU/L (10-60); AST ASPARTATE AMINOTRANSFERASE 23 IU/L (10-42); BILIRUBIN,TOTAL 0.8 mg/dL (0.2-1.0); BUN - BLOOD UREA NITROGEN 9 mg/dL (6-20); CARBON DIOXIDE - CO2 25 mmol/L (21-32); CHLORIDE 104 mmol/L (101-111); GFR - MDRD 57 (>89); GLUCOSE 104 mg/dL (70-100); LIPASE 30 U/L (22-51); SALICYLATE < 6.0 mg/dL; SODIUM 136 mmol/L (135-145); TOTAL PROTEIN 7.6 g/dL (6.7-8.2)
[2018-04-09 19:01] LABS: ACETAMINOPHEN < 10 ug/mL (10-30)
[2018-04-09 19:03] LABS: MUDS CUTOFF CONCENTRATIONS CUTOFF CONC BELOW:
[2018-04-09 19:17] LABS: AMPHETAMINE SCREEN,URINE NEGATIVE (NEGATIVE); BENZODIAZEPINES SCREEN, URINE NEGATIVE (NEGATIVE); COCAINE SCREEN URINE NEGATIVE (NEGATIVE); METHADONE SCREEN, URINE NEGATIVE (NEGATIVE); METHAMPHETAMINES SCREEN, URINE NEGATIVE (NEGATIVE); OPIATE SCREEN, URINE NEGATIVE (NEGATIVE); OXYCODONE SCREEN, URINE NEGATIVE (NEGATIVE); PROPOXYPHENE SCREEN, URINE NEGATIVE (NEGATIVE); TRICYCLIC ANTIDEPRESSANT,URINE NEGATIVE (NEGATIVE)
[2018-04-09 19:29] LABS: LITHIUM 0.31 mmol/L
[2018-04-09 19:43] LABS: RBC MORPHOLOGY (MULTIPLE) NORMAL APPEARANCE (NORMAL)
[2018-04-09 19:44] LABS: PLATELET ESTIMATE, MANUAL NORMAL (130-450,000) (NORMAL); PLATELET MORPHOLOGY 1+ GIANT PLATELETS (NORMAL)
[2018-04-09] MEDS ORDERED: SODIUM CHLORIDE 0.9% 1,000 ML IV ONE (20:32)
[2018-04-09 21:13] LABS: BUN - BLOOD UREA NITROGEN 12 mg/dL (6-20); CALCIUM 9.8 mg/dL (8.5-10.3); CARBON DIOXIDE - CO2 27 mmol/L (21-32); CHLORIDE 105 mmol/L (101-111); CREATININE 1.1 mg/dL (0.4-1.0); GFR - MDRD 51 (>89); GLUCOSE 100 mg/dL (70-100); MAGNESIUM 2.2 mg/dL (1.7-2.8); SODIUM 138 mmol/L (135-145)
[2018-04-09 21:22] LABS: DIGOXIN < 0.2 ng/mL
[2018-04-09 21:42] LABS: LITHIUM 0.29 mmol/L
[2018-04-10 00:38] VITALS: BP 143/64
== END 2018-04-10 00:41 | disposition short-term general hospital (02) ==
LOC: ED 18:07
DX: R00.1 Bradycardia, unspecified (principal); F31.9 Bipolar disorder, unspecified
CPT/HCPCS: 36415; 80048; 80053; 80162; 80178; 80306; 80307; 80320; 80329; 83690; 83735; 84443; 84484; 85025; 93005; 96361; 96374; 96376; 99285; 99291

== ENCOUNTER 2018-05-10 10:23 | Outpatient (CLI) | payer MEDICAID ==
[2018-05-10 10:55] LABS: BASOPHILS # (AUTO) 0.1 10^3/uL (0.0-0.1); EOSINOPHILS # (AUTO) 0.3 10^3/uL (0.0-0.7); HGB - HEMOGLOBIN 13.8 g/dL (12.0-16.0); LYMPHOCYTES # (AUTO) 1.6 10^3/uL (1.5-3.5); LYMPHOCYTES % (AUTO) 29.1 %; MEAN CORPUSCULAR HEMOGLOBIN 29.9 pg (27.0-31.0); MEAN CORPUSCULAR HGB CONC 33.8 g/dL (32.0-36.0); MEAN CORPUSCULAR VOLUME 88.6 fL (81.0-99.0); MEAN PLATELET VOLUME 7.8 fL (7.9-10.8); MONOCYTES # (AUTO) 0.4 10^3/uL (0.0-1.0); NEUTROPHILS # (AUTO) 3.2 10^3/uL (1.5-6.6); NEUTROPHILS % (AUTO) 57.9 %; PLT - PLATELET COUNT 214 10^3/uL (130-450); RED BLOOD COUNT 4.63 10^6/uL (4.20-5.40); RED CELL DISTRIBUTION WIDTH 13.3 % (12.0-15.0); WHITE BLOOD COUNT 5.5 x10^3/uL (4.8-10.8)
[2018-05-10 11:55] LABS: ALBUMIN 4.3 g/dL (3.2-5.5); ALBUMIN/GLOBULIN RATIO 1.3 (1.0-2.2); ALKALINE PHOSPHATASE 102 IU/L (42-121); ALT ALANINE AMINOTRANSFERASE 55 IU/L (10-60); AST ASPARTATE AMINOTRANSFERASE 35 IU/L (10-42); BILIRUBIN,TOTAL 0.7 mg/dL (0.2-1.0); BUN - BLOOD UREA NITROGEN 21 mg/dL (6-20); CALCIUM 9.7 mg/dL (8.5-10.3); CARBON DIOXIDE - CO2 26 mmol/L (21-32); CHLORIDE 102 mmol/L (101-111); CHOL/HDL RATIO 2.5 (<4.4); CHOLESTEROL 191 mg/dL; GFR - MDRD 57 (>89); GLUCOSE 108 mg/dL (70-100); HDL CHOLESTEROL 76 mg/dL; LDL CHOLESTEROL,CALCULATED 98 mg/dL; LDL/HDL RATIO 1.3 (<4.4); TOTAL PROTEIN 7.7 g/dL (6.7-8.2); VLDL CHOLESTEROL 17 mg/dL
[2018-05-10 12:03] LABS: LITHIUM 0.41 mmol/L
[2018-05-11 05:10] LABS: SODIUM 139 mmol/L (135-145)
== END 2018-05-10 10:24 | disposition home or self-care (01) ==
LOC: LAB 10:23
PROVIDERS: ATTEND Nurse Practitioner Family
DX: G40.909 Epilepsy, unspecified, not intractable, without status epilepticus (principal); F31.9 Bipolar disorder, unspecified; Z51.81 Encounter for therapeutic drug level monitoring; R73.9 Hyperglycemia, unspecified; E78.5 Hyperlipidemia, unspecified
CPT/HCPCS: 36415; 80050; 80061; 80175; 80178; 83721

== ENCOUNTER 2018-08-15 11:52 | Outpatient (CLI) | payer MEDICAID ==
[2018-08-15 13:06] LABS: CALCIUM 9.5 mg/dL (8.5-10.3); CREATININE 0.9 mg/dL (0.4-1.0)
== END 2018-08-15 11:53 | disposition home or self-care (01) ==
LOC: LAB 11:52
PROVIDERS: ATTEND Nurse Practitioner Family
DX: N18.3 Chronic kidney disease, stage 3 (moderate) (principal)
CPT/HCPCS: 36415; 80048

== ENCOUNTER 2018-09-27 11:30 | Outpatient (CLI) | payer MEDICAID ==
--- NOTE | 2018-09-27 12:27 | XRAY Report ---
Reason: PAIN IN LEFT FOOT Procedure Date: 09/27/2018 Accession Number: [id number] / [id number] Procedure: XR - Foot 3 View LT CPT Code: FULL RESULT: EXAM: LEFT FOOT RADIOGRAPHY EXAM DATE: 09/27/2018 11:50 AM. CLINICAL HISTORY: Pain in left foot. COMPARISON: None. TECHNIQUE: 3 views. FINDINGS: Bones: Normal. No fractures or bone lesions. Joints: Normal. No subluxations. Soft Tissues: Normal. No soft tissue swelling. IMPRESSION: Normal foot radiography. RADIA
== END 2018-09-27 11:31 | disposition home or self-care (01) ==
LOC: DI 11:30
PROVIDERS: ATTEND Nurse Practitioner Family
DX: M79.672 Pain in left foot (principal)

== ENCOUNTER 2019-03-28 11:04 | Emergency (ER) | payer MEDICAID ==
[2019-03-28 11:15] VITALS: BP 131/94
--- NOTE | 2019-03-28 11:28 | ED Physician Documentation ---
PD HPI UPPER EXT INJURY - Stated complaint Stated Complaint: LEFT ARM PX - Chief complaint Chief Complaint: Wound - History obtained from History obtained from: Patient - History of Present Illness Location: Left, Forearm Type of injury: Other (wasp sting) Where injury occurred: Home Timing - onset: How many days ago (5) Associated symptoms: Swelling - Additonal information Additional information: The patient is a 58-year-old right-hand dominant female who presents with swelling of her left forearm. The swelling started 5 days ago after she was stung by a wasp. She presents now because of continued swelling and itching. She denies fever, dyspnea, or difficulty swallowing. She denies history of similar symptoms in the past. Review of Systems Constitutional: denies: Fever Nose: denies: Congestion Throat: denies: Sore throat Cardiac: denies: Chest pain / pressure Respiratory: denies: Dyspnea, Cough GI: denies: Nausea, Vomiting Skin: reports: Bite / sting (left forearm) Musculoskeletal: reports: Extremity swelling (left forearm) Neurologic: denies: Focal weakness, Numbness, Headache PD PAST MEDICAL HISTORY - Past Medical History Cardiovascular: None Respiratory: None Endocrine/Autoimmune: None GI: GERD, Other HEENT: None Psych: Depression, Bipolar disorder, Other Derm: None - Past Surgical History Past Surgical History: Yes Ortho: Other - Present Medications Home Medications: Ambulatory Orders Medication Instructions Recorded Confirmed Cholecalciferol (Vitamin D3) 5,000 units PO ONCE 01/28/14 04/09/18 [Vitamin D] Docusate Sodium 100 mg PO BID 01/28/14 04/09/18 Levetiracetam [Keppra] 1,500 mg PO BID 01/28/14 04/09/18 Magnesium 250 mg PO QPM 01/28/14 04/09/18 Multivitamin [Multivitamins] 1 tab PO DAILY 01/28/14 04/09/18 Thiamine HCl [Vitamin B-1] 50 mg PO DAILY 01/28/14 04/09/18 lamoTRIgine [Lamictal] 200 mg PO BID 01/28/14 04/09/18 Amitriptyline HCl 1 tab PO DAILY 07/03/17 04/09/18 [place] Carbonate 300 mg PO DAILY 04/09/18 04/09/18 Prazosin [Minipress] 1 mg PO DAILY 04/09/18 04/09/18 - Allergies Allergies/Adverse Reactions: Allergies Allergy/AdvReac Type Severity Reaction Status Date / Time codeine Allergy Unknown Verified 01/09/17 15:49 gluten Allergy Unknown Verified 01/09/17 15:49 Penicillins Allergy Unknown Verified 01/09/17 15:49 - Social History Does the pt smoke?: No Smoking Status: Never smoker Does the pt drink ETOH?: No Does the pt have substance abuse?: No - Immunizations Immunizations are current?: Yes - POLST Patient has POLST: No PD ED PE NORMAL - Vitals Vital signs reviewed: Yes (Borderline hypertension.) - General General: Alert and oriented X 3, Well developed/nourished - HEENT HEENT: Atraumatic - Cardiac Cardiac: RRR - Respiratory Respiratory: No respiratory distress, Clear bilaterally - Derm Derm: No rash - Extremities Extremities: Other (There is slight swelling at the dorsal radial aspect of the left forearm. There is no erythema or ecchymosis. A stinger is noted, and was able to be removed with forceps. Distal neurovascular is intact.) - Neuro Neuro: Alert and oriented X 3, No motor deficit, No sensory deficit Results - Vitals Vitals: Oxygen O2 Source Room air PD MEDICAL DECISION MAKING - ED course Complexity details: considered differential, d/w patient ED course: The patient's presentation is most consistent with hymenoptera sting, with localized reaction. There is no clinical evidence of systemic reaction or cellulitis. The stinger was able to be removed. I discussed with the patient the expected course of symptoms, symptomatic treatment, as well as potentially worrisome signs or symptoms that should prompt reevaluation in the emergency department. Departure - Departure Disposition: 01 Home, Self Care Clinical Impression: Sting from hornet, wasp, or bee Qualifiers: Encounter type: initial encounter Injury intent: accidental or unintentional Qualified Code(s): T63.451A - Toxic effect of venom of hornets, accidental (unintentional), initial encounter Condition: Stable Instructions: ED Bite Sting Insect Local Allergic React Follow-Up: Felicity Dior ARNP, [employer] DESIGN DETAILER-[employer] [Credentialed Staff Provider] - Comments: Keep your left arm elevated as much of the time as possible. You can apply ice pack intermittently to help reduce swelling. You can use Tylenol if needed for discomfort. Follow-up with your primary physician or return to the emergency department if you develop increasing redness, swelling, pain, or otherwise worsening symptoms. Discharge Date/Time: 03/28/19 11:32
== END 2019-03-28 11:32 | disposition home or self-care (01) ==
LOC: ED 11:04
DX: M79.89 Other specified soft tissue disorders (principal); L29.9 Pruritus, unspecified; T63.461A Toxic effect of venom of wasps, accidental (unintentional), initial encounter; Z87.821 Personal history of retained foreign body fully removed
CPT/HCPCS: 99282

== ENCOUNTER 2019-06-20 09:37 | Outpatient (CLI) | payer MEDICAID ==
[2019-06-20 10:03] LABS: BASOPHILS % (AUTO) 0.7 %; EOSINOPHILS # (AUTO) 0.2 10^3/uL (0.0-0.7); EOSINOPHILS % (AUTO) 3.8 %; HGB - HEMOGLOBIN 13.7 g/dL (12.0-16.0); LYMPHOCYTES # (AUTO) 1.8 10^3/uL (1.5-3.5); LYMPHOCYTES % (AUTO) 32.4 %; MEAN CORPUSCULAR HGB CONC 32.4 g/dL (32.0-36.0); MEAN CORPUSCULAR VOLUME 89.6 fL (81.0-99.0); MEAN PLATELET VOLUME 9.3 fL (7.9-10.8); MONOCYTES # (AUTO) 0.5 10^3/uL (0.0-1.0); MONOCYTES % (AUTO) 8.2 %; NEUTROPHILS % (AUTO) 54.7 %; PLT - PLATELET COUNT 227 10^3/uL (130-450); RED BLOOD COUNT 4.72 10^6/uL (4.20-5.40); RED CELL DISTRIBUTION WIDTH 13.2 % (12.0-15.0); WHITE BLOOD COUNT 5.5 x10^3/uL (4.8-10.8)
[2019-06-20 10:26] LABS: ALBUMIN 4.1 g/dL (3.2-5.5); ALBUMIN/GLOBULIN RATIO 1.2 (1.0-2.2); ALKALINE PHOSPHATASE 73 IU/L (42-121); ALT ALANINE AMINOTRANSFERASE 22 IU/L (10-60); AST ASPARTATE AMINOTRANSFERASE 20 IU/L (10-42); BILIRUBIN,TOTAL 0.7 mg/dL (0.2-1.0); BUN - BLOOD UREA NITROGEN 13 mg/dL (6-20); CALCIUM 9.4 mg/dL (8.5-10.3); CARBON DIOXIDE - CO2 28 mmol/L (21-32); CHLORIDE 104 mmol/L (101-111); CHOL/HDL RATIO 2.5 (<4.4); CHOLESTEROL 181 mg/dL; CREATININE 0.9 mg/dL (0.4-1.0); GFR - MDRD 65 (>89); GLUCOSE 109 mg/dL (70-100); HDL CHOLESTEROL 72 mg/dL; LDL CHOLESTEROL,CALCULATED 95 mg/dL; LDL/HDL RATIO 1.3 (<4.4); SODIUM 139 mmol/L (135-145); TOTAL PROTEIN 7.5 g/dL (6.7-8.2); VLDL CHOLESTEROL 14 mg/dL
== END 2019-06-20 09:38 | disposition home or self-care (01) ==
LOC: LAB 09:37
PROVIDERS: ATTEND Nurse Practitioner
DX: N18.3 Chronic kidney disease, stage 3 (moderate) (principal); R73.9 Hyperglycemia, unspecified; Z51.81 Encounter for therapeutic drug level monitoring; Z79.899 Other long term (current) drug therapy; E78.5 Hyperlipidemia, unspecified
CPT/HCPCS: 36415; 80050; 80061; 80175; 83721

== ENCOUNTER 2020-09-02 08:00 | Outpatient (CLI) | payer MEDICAID ==
[2020-09-02 10:10] LABS: BASOPHILS # (AUTO) 0.1 10^3/uL (0.0-0.1); BASOPHILS % (AUTO) 1.1 %; EOSINOPHILS # (AUTO) 0.1 10^3/uL (0.0-0.7); HGB - HEMOGLOBIN 13.5 g/dL (12.0-16.0); LYMPHOCYTES # (AUTO) 1.7 10^3/uL (1.5-3.5); LYMPHOCYTES % (AUTO) 30.4 %; MEAN CORPUSCULAR HEMOGLOBIN 29.2 pg (27.0-31.0); MEAN CORPUSCULAR HGB CONC 32.5 g/dL (32.0-36.0); MEAN PLATELET VOLUME 8.7 fL (7.9-10.8); MONOCYTES # (AUTO) 0.4 10^3/uL (0.0-1.0); MONOCYTES % (AUTO) 8.1 %; NEUTROPHILS # (AUTO) 3.2 10^3/uL (1.5-6.6); NEUTROPHILS % (AUTO) 58.2 %; PLT - PLATELET COUNT 220 10^3/uL (130-450); RED BLOOD COUNT 4.62 10^6/uL (4.20-5.40); RED CELL DISTRIBUTION WIDTH 13.2 % (12.0-15.0); WHITE BLOOD COUNT 5.4 x10^3/uL (4.8-10.8)
[2020-09-02 11:09] LABS: ALBUMIN 4.2 g/dL (3.2-5.5); ALBUMIN/GLOBULIN RATIO 1.5 (1.0-2.2); ALKALINE PHOSPHATASE 81 IU/L (42-121); ALT ALANINE AMINOTRANSFERASE 20 IU/L (10-60); AST ASPARTATE AMINOTRANSFERASE 18 IU/L (10-42); BILIRUBIN,TOTAL 0.3 mg/dL (0.2-1.0); BUN - BLOOD UREA NITROGEN 13 mg/dL (6-20); CALCIUM 10.1 mg/dL (8.5-10.3); CARBON DIOXIDE - CO2 25 mmol/L (21-32); CHLORIDE 104 mmol/L (101-111); CHOL/HDL RATIO 2.5 (<4.4); CHOLESTEROL 177 mg/dL; GLUCOSE 119 mg/dL (70-100); HDL CHOLESTEROL 72 mg/dL; LDL CHOLESTEROL,CALCULATED 87 mg/dL; LDL/HDL RATIO 1.2 (<4.4); URIC ACID 3.8 mg/dL (2.6-7.2); VLDL CHOLESTEROL 18 mg/dL
[2020-09-02 11:22] LABS: CRP - C-REACTIVE PROTEIN < 1.0 mg/dL (0-1.0)
== END 2020-09-02 23:59 | disposition home or self-care (01) ==
LOC: LAB 08:00
PROVIDERS: ATTEND Nurse Practitioner
DX: N18.30 Chronic kidney disease, stage 3 unspecified (principal); R73.9 Hyperglycemia, unspecified; Z51.81 Encounter for therapeutic drug level monitoring; E78.5 Hyperlipidemia, unspecified; F31.9 Bipolar disorder, unspecified; K90.0 Celiac disease; K21.9 Gastro-esophageal reflux disease without esophagitis
CPT/HCPCS: 36415; 80050; 80061; 83721; 84550; 85651; 86140

== ENCOUNTER 2020-11-12 10:46 | Outpatient (CLI) | payer MEDICAID ==
--- NOTE | 2020-11-13 12:37 | Mammography Report ---
BILATERAL DIGITAL SCREENING MAMMOGRAM 3D/2D: 11/12/2020 CLINICAL: Routine screening. Comparison is made to exam dated: 02/18/2019 mammogram - [facility]. There are sca ttered fibroglandular elements in both breasts. There are 0.8 cm grouped fine punctate calcifications in the left breast at 8 o'clock middle depth. No other significant masses, calcifications, or other findings are seen in either breast. IMPRESSION: INCOMPLETE: NEEDS ADDITIONAL IMAGING EVALUATION The 0.8 cm grouped fine punctate calcifications in the left breast are indeterminate. Additional views are recommended. This exam was interpreted at Station ID: [id number]. NOTE: For mammograms, a report in lay terms will be sent to the patient. Approximately 15% of breast malignancies will not be visualized mammographically. In the management of a palpable breast mass, a negative mammogram must not discourage biopsy of a clinically suspicious lesion. Electronically Signed By: Wilver Astudillo M.D. slc/:11/12/2020 12:15:45 ACR BI-RADS Category 0: Incomplete 3340F PARENCHYMAL PATTERN: (A) - The breast(s) demonstrate(s) scattered fibroglandular densities. BI-RADS CATEGORY: (0) - 0 RECOMMENDATION: (ADDMAM) - Recommend additional mammographic views. [id number] Immediate follow-up LATERALITY: (B)
== END 2020-11-12 10:47 | disposition home or self-care (01) ==
LOC: DI 10:46
PROVIDERS: ATTEND Nurse Practitioner
DX: Z12.31 Encounter for screening mammogram for malignant neoplasm of breast (principal); R92.8 Other abnormal and inconclusive findings on diagnostic imaging of breast

== ENCOUNTER 2021-02-25 09:42 | Emergency (ER) | payer MEDICAID ==
[2021-02-25] MEDS ORDERED: HYDROcod/ACETAM 5/325 MG TABLET PO STA (12:18)
[2021-02-25] MEDS ORDERED: KETOROLAC 15 MG/ML VIAL IM STA (12:18)
--- NOTE | 2021-02-25 12:20 | ED Physician Documentation ---
PD HPI BACK PAIN - Stated complaint Stated Complaint: L KNEE PX - Chief complaint Chief Complaint: Back Pain - History obtained from History obtained from: Patient, Caregiver - Additional information Additional information: 60-year-old woman has had gradual progressive left lower back pain radiating to the left thigh over the last week after lifting something heavy. No specific injury otherwise. Its worse with bending and twisting. It has not improved with Aspercreme and ibuprofen. No fevers, chills, body aches, pedal edema, saddle anesthesia or incontinence. Review of Systems Constitutional: reports: Reviewed and negative Eyes: reports: Reviewed and negative Ears: reports: Reviewed and negative Nose: reports: Reviewed and negative Throat: reports: Reviewed and negative PD PAST MEDICAL HISTORY - Past Medical History Cardiovascular: None Respiratory: None Endocrine/Autoimmune: None GI: GERD, Other HEENT: None Psych: Depression, Bipolar disorder, Other Derm: None - Past Surgical History Past Surgical History: Yes Ortho: Other - Present Medications Home Medications: Ambulatory Orders Medication Instructions Recorded Confirmed Cholecalciferol (Vitamin D3) 5,000 units PO ONCE 01/28/14 04/09/18 [Vitamin D] Docusate Sodium 100 mg PO BID 01/28/14 04/09/18 Levetiracetam [Keppra] 1,500 mg PO BID 01/28/14 04/09/18 Magnesium 250 mg PO QPM 01/28/14 04/09/18 Multivitamin [Multivitamins] 1 tab PO DAILY 01/28/14 04/09/18 Thiamine HCl [Vitamin B-1] 50 mg PO DAILY 01/28/14 04/09/18 lamoTRIgine [Lamictal] 200 mg PO BID 01/28/14 04/09/18 Amitriptyline HCl 1 tab PO DAILY 07/03/17 04/09/18 [place] Carbonate 300 mg PO DAILY 04/09/18 04/09/18 Prazosin [Minipress] 1 mg PO DAILY 04/09/18 04/09/18 Gabapentin [Neurontin] 300 mg PO TID #30 cap 02/25/21 HYDROcod/ACETAM 5/325 [[place] 5/325] 1 - 2 tab PO Q6H PRN #15 tablet 02/25/21 - Allergies Allergies/Adverse Reactions: Allergies Allergy/AdvReac Type Severity Reaction Status Date / Time codeine Allergy Unknown Verified 01/09/17 15:49 gluten Allergy Unknown Verified 01/09/17 15:49 Penicillins Allergy Unknown Verified 01/09/17 15:49 - Social History Does the pt smoke?: No Smoking Status: Never smoker Does the pt drink ETOH?: No Does the pt have substance abuse?: No - Immunizations Immunizations are current?: Yes - POLST Patient has POLST: No PD ED PE NORMAL - Vitals Vital signs reviewed: Yes - General General: Alert and oriented X 3, No acute distress - HEENT HEENT: PERRL, EOMI - Neck Neck: Supple, no meningeal sign, No bony TTP - Cardiac Cardiac: RRR, No murmur - Respiratory Respiratory: No respiratory distress, Clear bilaterally - Abdomen Abdomen: Non tender - Extremities Extremities: Other (Tender to the left sciatic notch without midline spinal tenderness, no shingles rash, decreased sensation over the left thigh but not absent. Patellar and Achilles reflexes are normal.) - Neuro Neuro: Alert and oriented X 3, Normal speech Results - Vitals Vitals: Vital Signs - 24 hr 02/25/21 10:03 Temperature 36.3 C L Heart Rate 66 Respiratory 18 Rate Blood Pressure 138/100 H O2 Saturation 96 Oxygen O2 Source Room air PD MEDICAL DECISION MAKING - ED course ED course: 60-year-old woman with sciatica. Considered steroids but given her underlying mental health issues, may lead to decompensation and thusly held. Encouraged her to follow-up with her primary care physician for consideration of physical therapy. I am prescribing a short course of short-acting opioid pain medication for this patient. I have reviewed the patients TIRE FIXER and no concerning findings were noted. I have discussed that the opioids are for short term therapy only, and will not be refilled from the ED. Departure - Departure Disposition: 01 Home, Self Care Clinical Impression: Sciatica Qualifiers: Laterality: left Qualified Code(s): M54.32 - Sciatica, left side Condition: Good Record reviewed to determine appropriate education?: Yes Instructions: ED Sciatica Prescriptions: Gabapentin [Neurontin] 300 mg PO TID #30 cap HYDROcod/ACETAM 5/325 [[place] 5/325] 1 - 2 tab PO Q6H PRN #15 tablet PRN Reason: Pain Comments: Follow-up with your primary care physician, consider referral to physical therapy with them. Return for new or worsening symptoms. I am prescribing a short course of narcotic pain medication for you. These are potentially dangerous and addictive medications that should be used carefully. These medications may constipate you. Take an [id number] stool softener (docusate) twice daily with plenty of water while taking these medications. If you go 24 hours without a bowel movement, take [id number] miralax, per package instructions. Do not drink or drive while taking these medications. If you received narcotic or sedating medications while in the emergency department, do not drive for 24 hours. Store this medication in a safe, secure place and out of reach of children. It is a violation of federal law to give or sell this medication to another person or to use in a manner other than prescribed. The ED will not refill narcotic prescriptions, including prescriptions lost or stolen. To dispose of unwanted medications: 1. [facility] at [address] in [place] has a medication drop box. They accept prescription medications (in pill form) Monday through Monday 9:00 a.m. to 5:00 p.m. 2. The [facility] [employer] accepts prescription medications (in pill form only) for disposal year round. Call for more information. 3. Contact the [facility] for the next [facility] sponsored prescription drug collection event. , [phone], or [phone]; Note that many narcotic pain relievers also contain Tylenol/acetaminophen. Pl ease ensure that your total dose of acetaminophen from all sources does not exceed 3 g (3000 mg) per day.
[2021-02-25 12:46] VITALS: BP 138/94
== END 2021-02-25 12:46 | disposition home or self-care (01) ==
LOC: ED 09:42
DX: M54.32 Sciatica, left side (principal)
CPT/HCPCS: 99283; 99284; A9270

== ENCOUNTER 2022-11-09 09:44 | Outpatient (CLI) | payer MEDICAID ==
[2022-11-09 10:02] LABS: BASOPHILS # (AUTO) 0.1 10^3/uL (0.0-0.1); EOSINOPHILS # (AUTO) 0.1 10^3/uL (0.0-0.7); EOSINOPHILS % (AUTO) 1.8 %; HCT - HEMATOCRIT 41.5 % (37.0-47.0); HGB - HEMOGLOBIN 13.6 g/dL (12.0-16.0); LYMPHOCYTES # (AUTO) 1.9 10^3/uL (1.5-3.5); LYMPHOCYTES % (AUTO) 26.3 %; MEAN CORPUSCULAR HEMOGLOBIN 29.1 pg (27.0-31.0); MEAN CORPUSCULAR HGB CONC 32.8 g/dL (32.0-36.0); MEAN CORPUSCULAR VOLUME 88.9 fL (81.0-99.0); MEAN PLATELET VOLUME 9.5 fL (7.9-10.8); MONOCYTES # (AUTO) 0.6 10^3/uL (0.0-1.0); MONOCYTES % (AUTO) 8.6 %; NEUTROPHILS # (AUTO) 4.4 10^3/uL (1.5-6.6); NEUTROPHILS % (AUTO) 62.2 %; PLT - PLATELET COUNT 228 10^3/uL (130-450); RED BLOOD COUNT 4.67 10^6/uL (4.20-5.40); RED CELL DISTRIBUTION WIDTH 13.8 % (12.0-15.0); WHITE BLOOD COUNT 7.1 x10^3/uL (4.8-10.8)
[2022-11-09 10:19] LABS: ALBUMIN 4.2 g/dL (3.2-5.5); ALBUMIN/GLOBULIN RATIO 1.4 (1.0-2.2); ALKALINE PHOSPHATASE 85 IU/L (42-121); ALT ALANINE AMINOTRANSFERASE 33 IU/L (10-60); AST ASPARTATE AMINOTRANSFERASE 26 IU/L (10-42); BILIRUBIN,TOTAL 0.3 mg/dL (0.2-1.0); BUN - BLOOD UREA NITROGEN 15 mg/dL (6-20); CALCIUM 10.2 mg/dL (8.5-10.3); CARBON DIOXIDE - CO2 28 mmol/L (21-32); CHLORIDE 107 mmol/L (101-111); CHOL/HDL RATIO 2.6 (<4.4); CHOLESTEROL 160 mg/dL; CREATININE 0.9 mg/dL (0.4-1.0); GFR - MDRD 64 (>89); GLUCOSE 136 mg/dL (70-100); HDL CHOLESTEROL 61 mg/dL; LDL CHOLESTEROL,CALCULATED 70 mg/dL; LDL/HDL RATIO 1.1 (<4.4); POTASSIUM 4.8 mmol/L (3.5-5.0); SODIUM 139 mmol/L (135-145); TOTAL PROTEIN 7.2 g/dL (6.7-8.2); TRIGLYCERIDES 143 mg/dL; VLDL CHOLESTEROL 29 mg/dL
[2022-11-09 10:29] LABS: THYROID STIMULATING HORMONE 2.32 uIU/mL (0.34-5.60)
[2022-11-09 10:36] LABS: ESTIMATED AVERAGE GLUCOSE 131 mg/dL (70-100); HEMOGLOBIN A1c% 6.2 % (4.27-6.07)
== END 2022-11-09 09:45 | disposition home or self-care (01) ==
LOC: LAB 09:44
PROVIDERS: ATTEND Family Medicine
DX: R73.9 Hyperglycemia, unspecified (principal); F33.1 Major depressive disorder, recurrent, moderate; R03.0 Elevated blood-pressure reading, without diagnosis of hypertension; Z95.0 Presence of cardiac pacemaker; L20.9 Atopic dermatitis, unspecified; R00.1 Bradycardia, unspecified
CPT/HCPCS: 36415; 80050; 80061; 83036; 83721

== ENCOUNTER 2023-01-12 12:48 | Outpatient (CLI) | payer MEDICAID ==
[2023-01-12 13:19] LABS: CHOL/HDL RATIO 2.7 (<4.4); CHOLESTEROL 186 mg/dL; HDL CHOLESTEROL 69 mg/dL; LDL CHOLESTEROL,CALCULATED 93 mg/dL; LDL/HDL RATIO 1.3 (<4.4); TRIGLYCERIDES 120 mg/dL; VLDL CHOLESTEROL 24 mg/dL
== END 2023-01-12 12:49 | disposition home or self-care (01) ==
LOC: LAB 12:48
PROVIDERS: ATTEND Internal Medicine Cardiovascular Disease
DX: E78.5 Hyperlipidemia, unspecified (principal)
CPT/HCPCS: 36415; 80061; 83721

== ENCOUNTER 2023-02-23 12:24 | Outpatient (CLI) | payer MEDICAID ==
--- NOTE | 2023-02-23 20:27 | XRAY Report ---
PROCEDURE: Ankle 3 View LT INDICATIONS: SPRAIN TECHNIQUE: 3 views of the ankle were acquired. COMPARISON: None. FINDINGS: Bones: No fractures or dislocations. Ankle mortise is normally aligned. No suspicious bony lesions . Soft tissues: No tibiotalar joint effusion. Achilles tendon appears normal. IMPRESSION: No acute bony abnormality. Reviewed by: Markus Denton MD on 02/23/2023 7:25 PM AZAM Approved by: Markus Denton MD on 02/23/2023 7:25 PM AKDT Station ID: [id number]
--- NOTE | 2023-02-23 22:46 | XRAY Report ---
PROCEDURE: Lumbar Spine Complete INDICATIONS: BACK PAIN TECHNIQUE: 5 views of the lumbar spine were acquired. COMPARISON: None. FINDINGS: Bones: 5 [id number] vertebrae are present. There is normal bony alignment. No vertebral body compression fractures. No suspicious bony lesions. Disc space narrowing and hypertrophic facet join ts noted throughout the exam, particularly lower lumbar spine Soft tissues: Overlying bowel gas pattern is normal. No suspicious soft tissue calcifications. IMPRESSION: Degenerative disc disease and arthropathy throughout the exam, particularly in the lower lumbar spine Reviewed by: Markus Denton MD on 02/23/2023 9:45 PM AZAM Approved by: Markus Denton MD on 02/23/2023 9:45 PM AKJANNET Station ID: [id number]
== END 2023-02-23 12:25 | disposition home or self-care (01) ==
LOC: DI 12:24
PROVIDERS: ATTEND Family Medicine
DX: S93.422A Sprain of deltoid ligament of left ankle, initial encounter (principal); M47.816 Spondylosis without myelopathy or radiculopathy, lumbar region; M51.36 Other intervertebral disc degeneration, lumbar region

== ENCOUNTER 2023-03-09 15:43 | Outpatient (CLI) | payer MEDICAID | END 2023-03-09 23:59 | disposition critical access hospital (66) | LOC: EMS 15:43 | DX: M79.89 Other specified soft tissue disorders (principal); M79.605 Pain in left leg; M79.604 Pain in right leg | CPT/HCPCS: A0425; A0429; A0999 ==

== ENCOUNTER 2023-03-09 16:18 | Emergency (ER) | payer MEDICAID ==
--- NOTE | 2023-03-09 16:26 | ED Physician Documentation ---
History of Present Illness - Stated complaint Stated Complaint: SWOLLEN EXTREMITY X4 - Additonal information Additional information: She started meloxicam 5 days ago she started meloxicam a couple weeks ago. Over the last 4 days or so she has developed bilateral pedal edema. There is no associated chest pain or trouble breathing. She denies history of similar issues in the past. PD PAST MEDICAL HISTORY - Past Medical History Cardiovascular: None Respiratory: None Endocrine/Autoimmune: None GI: GERD, Other HEENT: None Psych: Depression, Bipolar disorder, Other Derm: None - Past Surgical History Past Surgical History: Yes Ortho: Other - Present Medications Home Medications: Ambulatory Orders Medication Instructions Recorded Confirmed lamoTRIgine [Lamictal] 150 mg PO DAILY 01/28/14 03/09/23 ARIPiprazole [Aripiprazole] 15 mg PO DAILY 03/09/23 03/09/23 Atorvastatin [Lipitor] 10 mg PO QPM 03/09/23 03/09/23 DULoxetine [Cymbalta] 90 mg PO DAILY 03/09/23 03/09/23 Doxepin [SINEquan] 10 mg PO QPM 03/09/23 03/09/23 Furosemide [Lasix] 20 mg PO DAILY #3 tablet 03/09/23 LORazepam [Loreev Xr] 1 mg PO DAILY PRN 03/09/23 03/09/23 Meloxicam 15 mg PO DAILY PRN 03/09/23 03/09/23 Pantoprazole [Protonix] 40 mg PO DAILY 03/09/23 03/09/23 Potassium Chloride 20 meq PO DAILY #3 tab 03/09/23 - Allergies Allergies/Adverse Reactions: Allergies Allergy/AdvReac Type Severity Reaction Status Date / Time codeine Allergy Hives Verified 03/09/23 16:36 gluten Allergy Unknown Verified 01/09/17 15:49 Penicillins Allergy Hives Verified 03/09/23 16:36 - Social History Does the pt smoke?: No Smoking Status: Never smoker Does the pt drink ETOH?: No Does the pt have substance abuse?: No - Immunizations Immunizations are current?: Yes - POLST Patient has POLST: No PD ED PE NORMAL - Vitals Vital signs reviewed: Yes - General General: Alert and oriented X 3, No acute distress - Neck Neck: No JVD - Cardiac Cardiac: RRR, No murmur - Respiratory Respiratory: No respiratory distress, Clear bilaterally - Derm Derm: Normal color, Warm and dry - Extremities Extremities: Other (2+ pitting pedal edema to lower calf, symmetric. Nontender calves. Good pedal perfusion.) - Neuro Neuro: Alert and oriented X 3, Normal speech Results - Vitals Vitals: Vital Signs - 24 hr 03/09/23 16:30 Temperature 36.3 C L Heart Rate 59 L Respiratory 15 Rate Blood Pressure 154/84 H O2 Saturation 98 Oxygen O2 Source Room air - Labs Labs: Laboratory Tests 03/09/23 16:31 Sodium 138 Potassium 4.5 Chloride 107 Carbon Dioxide 28 Anion Gap 3.0 L BUN 13 Creatinine 0.9 Estimated GFR (MDRD) 64 L Glucose 107 H Calcium 9.5 PD Medical Decision Making - ED course ED course: 62-year-old woman presents with pedal edema. Timing likely related to starting meloxicam. Will check renal function Departure - Departure Disposition: Home, Self Care Clinical Impression: Pedal edema Condition: Good Record reviewed to determine appropriate education?: Yes Instructions: ED Edema Legs Bilateral Prescriptions: Furosemide [Lasix] 20 mg PO DAILY #3 tablet Potassium Chloride 20 meq PO DAILY #3 tab Comments: The leg swelling you are experiencing is likely from the meloxicam anti- inflammatory. You should stop that and talk with your doctor about a replacement. I am prescribing a water pill to be taken for the next few days along with a potassium supplement. Leg swelling should get much better. Good to mobilize and walk around as well. Return if worse.
[2023-03-09 16:40] VITALS: BP 154/84; O2SAT 98
[2023-03-09 16:50] LABS: CALCIUM 9.5 mg/dL (8.5-10.3); CREATININE 0.9 mg/dL (0.6-1.3); POTASSIUM 4.5 mmol/L (3.5-4.5)
== END 2023-03-09 17:08 | disposition home or self-care (01) ==
LOC: EDUNIT# → ED 16:18
DX: R60.9 Edema, unspecified (principal)
CPT/HCPCS: 36415; 80048; 99283

== ENCOUNTER 2023-03-16 14:18 | Emergency (ER) | payer MEDICAID ==
--- NOTE | 2023-03-16 14:47 | ED Physician Documentation ---
History of Present Illness - Stated complaint Stated Complaint: BILAT FOOT SWELLING/PX - Chief complaint Chief Complaint: Ext Problem - Additonal information Additional information: 62-year-old female returns to the emergency department for evaluation of bilateral lower extremity edema. Was seen 1 week ago for similar. The edema began after she started meloxicam. Renal function was checked with the last ED visit and found to be normal. Was advised to stop the meloxicam and was given a week of Lasix. Despite compliance with Lasix and reports that she is urinating more the edema has not resolved and patient feels that it is worsening. The edema worsens as the day goes on but may improve slightly overnight when sleeping. She denies chest pain or shortness of air. No exertional dyspnea orthopnea. No fevers. No cough or hemoptysis. Patient does have a unclear mental disorder and is not a good historian. However a chest x-ray reveals that the patient has a pacemaker. I subsequently reviewed her [facility] chart and see that she has a history of sick sinus syndrome status post pacemaker in 2018. She reportedly an echocardiogram completed in March [address] [facility] showed a left ventricular ejection fraction of 55 to 60% with a small pericardial effusion. This morning she was like trespassing the neighbors yard think a stress test completed in July 2018 showed low risk and no evidence of ischemia. Review of Systems Constitutional: reports: Reviewed and negative Cardiac: reports: Pedal edema Respiratory: reports: Reviewed and negative. denies: Dyspnea, Cough, Hemoptysis, Wheezing GI: reports: Reviewed and negative : reports: Reviewed and negative Skin: reports: Reviewed and negative Musculoskeletal: reports: Extremity swelling Neurologic: reports: Reviewed and negative PD PAST MEDICAL HISTORY - Past Medical History Cardiovascular: Other Respiratory: None Endocrine/Autoimmune: None GI: GERD, Other HEENT: None Psych: Depression, Bipolar disorder, Other Derm: None Other Past Medical History: pacemaker for low heart rate. - Past Surgical History Past Surgical History: Yes Ortho: Other Cardiovascular: Pacemaker - Present Medications Home Medications: Ambulatory Orders Medication Instructions Recorded Confirmed lamoTRIgine [Lamictal] 150 mg PO BID 01/28/14 03/16/23 ARIPiprazole [Aripiprazole] 10 mg PO DAILY 03/09/23 03/16/23 Atorvastatin [Lipitor] 10 mg PO QPM 03/09/23 03/16/23 DULoxetine [Cymbalta] 90 mg PO DAILY 03/09/23 03/16/23 Doxepin [SINEquan] 25 mg PO QPM 03/09/23 03/16/23 Furosemide [Lasix] 20 mg PO DAILY #3 tablet 03/09/23 03/16/23 LORazepam [Loreev Xr] 1 mg PO DAILY PRN 03/09/23 03/16/23 Meloxicam 15 mg PO DAILY PRN 03/09/23 03/16/23 Pantoprazole [Protonix] 40 mg PO DAILY 03/09/23 03/16/23 Potassium Chloride 20 meq PO DAILY #3 tab 03/09/23 03/16/23 Furosemide [Lasix] 20 mg PO DAILY #7 tablet 03/16/23 - Allergies Allergies/Adverse Reactions: Allergies Allergy/AdvReac Type Severity Reaction Status Date / Time codeine Allergy Hives Verified 03/16/23 14:24 gluten Allergy Unknown Verified 03/16/23 14:24 Penicillins Allergy Hives Verified 03/16/23 14:24 - Social History Does the pt smoke?: No Smoking Status: Never smoker Does the pt drink ETOH?: No Does the pt have substance abuse?: No - Immunizations Immunizations are current?: Yes - POLST Patient has POLST: No PD ED PE NORMAL - General General: Alert and oriented X 3, No acute distress, Well developed/nourished - Neck Neck: Supple, no meningeal sign, Thyroid normal - Cardiac Cardiac: RRR, No murmur, Strong equal pulses, Other (2+ pitting edema to the mid calf without erythema bilaterally. No posterior calf pain tenderness) - Respiratory Respiratory: No respiratory distress, Clear bilaterally - Abdomen Abdomen: Normal bowel sounds, Soft, Non tender - Back Back: No CVA TTP - Derm Derm: Normal color, Warm and dry, No rash - Extremities Extremities: No calf tenderness / cord. No: No edema - Neuro Neuro: Alert and oriented X 3 Eye Opening: Spontaneous Motor: Obeys Commands Verbal: Oriented GCS Score: 15 Results - Vitals Vitals: Vital Signs - 24 hr 03/16/23 14:24 Temperature 36.5 C Heart Rate 60 Respiratory 16 Rate Blood Pressure 158/73 H O2 Saturation 98 Oxygen O2 Source Room air - Labs Labs: Laboratory Tests 03/16/23 03/16/23 03/16/23 14:45 14:45 14:45 WBC 7.0 RBC 4.36 Hgb 12.8 Hct 39.0 MCV 89.4 MCH 29.4 MCHC 32.8 RDW 14.4 Plt Count 205 MPV 9.3 Neut # (Auto) 4.4 Lymph # (Auto) 1.7 [place] # (Auto) 0.6 Eos # (Auto) 0.2 Baso # (Auto) 0.1 Absolute Nucleated RBC 0.00 Nucleated RBC % 0.0 Sodium 138 Potassium 4.2 Chloride 107 Carbon Dioxide 24 Anion Gap 7.0 BUN 13 Creatinine 0.8 Estimated GFR (MDRD) 73 L Glucose 112 H Calcium 8.9 Total Bilirubin 0.7 AST 27 ALT 38 Alkaline Phosphatase 81 B-Natriuretic Peptide 90 Total Protein 7.0 Albumin 4.1 Globulin 2.9 Albumin/Globulin Ratio 1.4 Lipase 29 TSH 1.07 Urine Color Urine Clarity Urine pH Ur Specific [place] Urine Protein Urine Glucose (UA) Urine Ketones Urine Occult Blood Urine Nitrite Urine Bilirubin Urine Urobilinogen Ur Leukocyte Esterase Ur Microscopic Review Urine Culture Comments 03/16/23 15:00 WBC RBC Hgb Hct MCV MCH MCHC RDW Plt Count MPV Neut # (Auto) Lymph # (Auto) [place] # (Auto) Eos # (Auto) Baso # (Auto) Absolute Nucleated RBC Nucleated RBC % Sodium Potassium Chloride Carbon Dioxide Anion Gap BUN Creatinine Estimated GFR (MDRD) Glucose Calcium Total Bilirubin AST ALT Alkaline Phosphatase B-Natriuretic Peptide Total Protein Albumin Globulin Albumin/Globulin Ratio Lipase TSH Urine Color YELLOW Urine Clarity CLEAR Urine pH 6.0 Ur Specific [place] 1.025 Urine Protein NEGATIVE Urine Glucose (UA) NEGATIVE Urine Ketones TRACE Urine Occult Blood NEGATIVE Urine Nitrite NEGATIVE Urine Bilirubin NEGATIVE Urine Urobilinogen 0.2 (NORMAL) Ur Leukocyte Esterase NEGATIVE Ur Microscopic Review NOT INDICATED Urine Culture Comments NOT INDICATED - Rads (name of study) US DVT bilat Relevant Findings:: Final report received (Negative for deep vein thrombosis bilaterally.) cxr Relevant Findings:: EMP independent interpretation of test (no acute cardiopulmonary pathology. pacer wires noted) PD Medical Decision Making - ED course Complexity details: reviewed results, re-evaluated patient, considered differential, d/w patient ED course: 62-year-old female returns the emergency department for evaluation of bilateral lower extremity edema that she has had now for a little more than a week. It began after she started meloxicam. Seen recently by colleague for this found to have normal renal function advised to stop meloxicam and was given a short course of Lasix. Despite this treatment she continues to have persistent swelling. Denies chest pain or shortness of air. Patient does have a history of sick sinus syndrome and has a pacemaker in place. On presentation she is afebrile. Paced cardiac rhythm on the monitor. Blood pressure 160/73. On examination she has bilateral lower extremity pitting edema to about mid calf. No posterior calf pain tenderness was elicited. I did obtain CBC, electrolytes and a BNP. Per my interpretation no acute worrisome abnormalities were noted. No anemia. Renal and liver function was normal. BNP also normal at 90. Urine showed no signs of proteinuria. Chest x- ray is interpreted by myself showed no significant findings suggest volume overload. I did obtain bilateral lower extremity ultrasound which was negative for DVT. Clinically the patient does not appear to have left-sided heart failure, nephrotic syndrome, renal failure, liver failure, dvt's or infection. She is discharged home in stable condition with recommendation to follow closely with her dance historian. May benefit from an outpatient echocardiogram to evaluate for right-sided heart failure or pulmonary hypertension. She is given a 1 week prescription of Lasix advised compressive stockings and leg elevation. The usual emergent return precautions for failure symptoms to resolve or markedly worsen was discussed Departure - Departure Disposition: 01 Home, Self Care Clinical Impression: Swelling of both lower extremities Condition: Stable Record reviewed to determine appropriate education?: Yes Follow-Up: Angel Gutierrez MD [Physician No Access] - Prescriptions: Furosemide [Lasix] 20 mg PO DAILY #7 tablet Comments: As discussed at the bedside it is not clear what is causing your lower extremity swelling at this time. The ultrasounds do not show blood clots in your legs. Your kidney and liver function is normal. The chest x-ray did not show signs of fluid overload. I would like you to follow-up closely with Dr. Gutierrez to discuss this ED visit. He may want to consider outpatient echocardiogram. Please make sure you are elevating your legs at night when asleep. You can also buy compressive stockings [id number] at the pharmacy and wear them during the day when out of bed. I would like you to take the Lasix or furosemide each day for the next week. Return to the ER if you are having worsening symptoms, develop chest pain or have severe shortness of air. Forms: PCP List
[2023-03-16 14:53] LABS: BASOPHILS # (AUTO) 0.1 10^3/uL (0.0-0.1); EOSINOPHILS # (AUTO) 0.2 10^3/uL (0.0-0.7); EOSINOPHILS % (AUTO) 2.1 %; HGB - HEMOGLOBIN 12.8 g/dL (12.0-16.0); LYMPHOCYTES # (AUTO) 1.7 10^3/uL (1.5-3.5); LYMPHOCYTES % (AUTO) 24.5 %; MEAN CORPUSCULAR HEMOGLOBIN 29.4 pg (27.0-31.0); MEAN CORPUSCULAR HGB CONC 32.8 g/dL (32.0-36.0); MEAN CORPUSCULAR VOLUME 89.4 fL (81.0-99.0); MEAN PLATELET VOLUME 9.3 fL (7.9-10.8); MONOCYTES # (AUTO) 0.6 10^3/uL (0.0-1.0); MONOCYTES % (AUTO) 9.2 %; NEUTROPHILS # (AUTO) 4.4 10^3/uL (1.5-6.6); NEUTROPHILS % (AUTO) 62.9 %; PLT - PLATELET COUNT 205 10^3/uL (130-450); RED BLOOD COUNT 4.36 10^6/uL (4.20-5.40); RED CELL DISTRIBUTION WIDTH 14.4 % (12.0-15.0)
[2023-03-16 15:07] LABS: BILIRUBIN,URINE NEGATIVE (NEGATIVE); GLUCOSE, URINE (UA) NEGATIVE (NEGATIVE); KETONES,URINE (UA) TRACE mg/dL (NEGATIVE); LEUKOCYTE ESTERASE, URINE NEGATIVE (NEGATIVE); NITRITE,URINE NEGATIVE (NEGATIVE); OCCULT BLOOD,URINE NEGATIVE (NEGATIVE); PROTEIN,URINE NEGATIVE (NEGATIVE); UROBILINOGEN,URINE 0.2 (NORMAL) E.U./dL (NORMAL)
[2023-03-16 15:09] LABS: ALBUMIN 4.1 g/dL (3.2-5.5); ALBUMIN/GLOBULIN RATIO 1.4 (1.0-2.2); BILIRUBIN,TOTAL 0.7 mg/dL (0.2-1.0); CALCIUM 8.9 mg/dL (8.5-10.3); CREATININE 0.8 mg/dL (0.4-1.0); POTASSIUM 4.2 mmol/L (3.5-5.0)
[2023-03-16 15:09] LABS: CLARITY,URINE CLEAR (CLEAR)
[2023-03-16 15:20] LABS: THYROID STIMULATING HORMONE 1.07 uIU/mL (0.34-5.60)
--- NOTE | 2023-03-16 15:48 | XRAY Report ---
PROCEDURE: Chest 1 View X-Ray INDICATIONS: leg swelling TECHNIQUE: One view of the chest was acquired. COMPARISON: None. FINDINGS: Surgical changes and devices: Left chest wall pacemaker. Lungs and pleura: No pleural effusions or pneumothorax. Lungs are clear. Mediastinum: Mediastinal contours appear normal. Heart size is normal. Bones and chest wall: No suspicious bony lesions. Overlying soft tissues appear unremarkable. IMPRESSION: No acute cardiopulmonary process. Reviewed by: Juancarlos Fonseca on 03/16/2023 3:46 PM PDT Approved by: Juancralos Fonseca on 03/16/2023 3:46 PM PDT Station ID: [id number]
[2023-03-16 15:50] VITALS: BP 122/63; O2SAT 97
--- NOTE | 2023-03-16 15:51 | Ultrasound Report ---
PROCEDURE: Duplex Ext Veins Bilateral INDICATIONS: Bilateral leg pain and swelling. TECHNIQUE: Real-time imaging, as well as color and pulse Doppler interrogation, were performed of the deep veins of both legs from the inguinal ligament to the popliteal fossa. COMPARISON: None FINDINGS: The deep veins are normally compressible, and free of intraluminal thrombus. Color and pu lse Doppler demonstrate normal phasic intravascular flow. There is normal augmentation response to d istal compression maneuver. IMPRESSION: No deep venous thrombosis. Reviewed by: Juancarlos Fonseca on 03/16/2023 3:50 PM PDT Approved by: Juancarlos Fonseca on 03/16/2023 3:50 PM PDT Station ID: [id number]
== END 2023-03-16 15:47 | disposition home or self-care (01) ==
LOC: ED 14:18
DX: R60.0 Localized edema (principal)
CPT/HCPCS: 36415; 80053; 81001; 81003; 83690; 83880; 84443; 85025; 87086; 93970; 99284

== ENCOUNTER 2023-05-11 06:22 | Day surgery (SDC) | payer MEDICAID ==
[2023-05-11] MEDS ORDERED: LACTATED RINGERS 1,000 ML IV ONE ×2 (06:35→08:04)
[2023-05-11] MEDS ORDERED: LIDOCAINE-PF 2% 10 ML AMP SUBQ ONE (06:46)
[2023-05-11] MEDS ORDERED: PROPOFOL 500 MG/50 ML 500 MG/50 ML VIAL ONE (06:46)
--- NOTE | 2023-05-11 07:13 | ANESTHESIA ---
Pre-Anesthesia VS, & Labs - Diagnosis GERD - Procedure EGD Height: 5 ft 3 in Weight (kg): 88.5 kg Body Mass Index: 34.5 BMI Classification: Obese - NPO >8 hours - Is Patient ?: No - Lab Results Lab results reviewed: Yes Home Medications and Allergies lamoTRIgine [Lamictal] 150 mg PO BID 01/28/14 ARIPiprazole [Aripiprazole] 10 mg PO DAILY 03/09/23 Atorvastatin [Lipitor] 10 mg PO QPM 03/09/23 DULoxetine [Cymbalta] 90 mg PO DAILY 03/09/23 Doxepin [SINEquan] 25 mg PO QPM 03/09/23 LORazepam [Loreev Xr] 1 mg PO DAILY PRN 03/09/23 Meloxicam 15 mg PO DAILY PRN 03/09/23 Pantoprazole [Protonix] 40 mg PO DAILY 03/09/23 Allergies/Adverse Reactions: Allergies Allergy/AdvReac Type Severity Reaction Status Date / Time codeine Allergy Hives Verified 03/16/23 14:24 gluten Allergy Unknown Verified 03/16/23 14:24 Penicillins Allergy Hives Verified 03/16/23 14:24 Anes History & Medical History - Anesthetic History Anesthesia Complications: reports: No previous complications Family history of Anesthesia Complications: Denies Family history of Malignant Hyperthermia: Denies - Medical History Cardiovascular: reports: Other (PM, recent episode of LE edema, echo scheduled tomorrow, today no appreciable leg swelling) Pulmonary: reports: None Gastrointestinal: reports: GERD, Other Urinary: reports: None Neuro: reports: None Musculoskeletal: reports: None Endocrine/Autoimmune: reports: None Blood Disorders: reports: None Skin: reports: None Smoking Status: Never smoker - Surgical History Cardiothoracic: reports: Pacemaker Orthopedic: reports: Other Exam General: Alert, Oriented x3, Cooperative Dental: WNL Mouth Openin Fingerbreadth Neck Mobility: Normal Mallampati classification: IV Thyromental Distance: 4-6 cm Respiratory: Lungs clear Cardiovascular: Regular rate Plan Anesthesia Type: General, MAC Consent for Procedure(s) Verified and Reviewed: Yes Code Status: Attempt Resuscitation ASA classification: 3-Severe systemic disease Is this case an emergency?: No
--- NOTE | 2023-05-11 07:30 | HISTORY & PHYSICAL EXAMINATION ---
Chief Complaint - Chief Complaint Chief Complaint: here for upper endoscopy History of Present Illness - History Obtained From Records Reviewed: yes History obtained from: pt Exam Limitations: none - History of Present Illness HPI Comment/Other: progressive trouble swallowing. history celiac. 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, Other Cardiovascular: reports: Pacemaker - POLST Patient has POLST: No Meds/Allgy - Home Medications Home Medications: Ambulatory Orders Medication Instructions Recorded Confirmed lamoTRIgine [Lamictal] 150 mg PO BID 01/28/14 03/16/23 ARIPiprazole [Aripiprazole] 10 mg PO DAILY 03/09/23 03/16/23 Atorvastatin [Lipitor] 10 mg PO QPM 03/09/23 03/16/23 DULoxetine [Cymbalta] 90 mg PO DAILY 03/09/23 03/16/23 Doxepin [SINEquan] 25 mg PO QPM 03/09/23 03/16/23 Furosemide [Lasix] 20 mg PO DAILY #3 tablet 03/09/23 03/16/23 LORazepam [Loreev Xr] 1 mg PO DAILY PRN 03/09/23 03/16/23 Meloxicam 15 mg PO DAILY PRN 03/09/23 03/16/23 Pantoprazole [Protonix] 40 mg PO DAILY 03/09/23 03/16/23 Potassium Chloride 20 meq PO DAILY #3 tab 03/09/23 03/16/23 Furosemide [Lasix] 20 mg PO DAILY #7 tablet 03/16/23 - Allergies Allergies/Adverse Reactions: Allergies Allergy/AdvReac Type Severity Reaction Status Date / Time codeine Allergy Hives Verified 05/11/23 07:18 gluten Allergy Unknown Verified 05/11/23 07:18 Penicillins Allergy Hives Verified 05/11/23 07:18 Review of Systems - Other Findings Other Findings: doing well after pacemaker. 10 pt ros as above otherwise unremarkable Exam - Physical Exam General Appearance: positive: No acute distress, Alert Eyes Bilateral: positive: PERRL, EOMI ENT: positive: No signs of dehydration Neck: positive: No JVD, Trachea midline Respiratory: positive: No respiratory distress, Breath sounds nml Cardiovascular: positive: Regular rate & rhythm Abdomen: positive: No distention Neurologic/Psychiatric: positive: Oriented x3 Conclusion/Plan - Problem List (1) Trouble swallowing Conclusion/Plan: plan egd with biopsies. parq held and consent obtained - Lab Results Lab results reviewed: Yes
[2023-05-11 08:33] VITALS: BP 153/74; O2SAT 99
--- NOTE | 2023-05-11 12:02 | ANESTHESIA POST OP EVALUATION ---
Anesthesia Post Eval - Post Anesthesia Eval Vitals: Last Vital Signs Temp 36.4 C L 05/11/23 08:01 Pulse 60 05/11/23 08:23 Resp 19 05/11/23 08:23 BP 153/74 H 05/11/23 08:23 Pulse Ox 99 05/11/23 08:23 O2 Flow Rate 97 05/11/23 06:44 CV Function Including HR & BP: Stable Pain Control: Satisfactory Nausea & Vomiting: Negative Mental Status: Baseline Respiratory Status: Airway Patent Hydration Status: Satisfactory Anesthesia Complications: None
== END 2023-05-11 06:23 | disposition home or self-care (01) ==
LOC: SDS 06:22
PROVIDERS: ATTEND Surgery
PROC: 0DB78ZX Excision of Stomach, Pylorus, Via Natural or Artificial Opening Endoscopic, Diagnostic (ICD-10-PCS; 2023-05-11)
PROC: 0DB28ZX Excision of Middle Esophagus, Via Natural or Artificial Opening Endoscopic, Diagnostic (ICD-10-PCS; 2023-05-11)
PROC: 0DB38ZX Excision of Lower Esophagus, Via Natural or Artificial Opening Endoscopic, Diagnostic (ICD-10-PCS; 2023-05-11)
PROC: 0DB98ZX Excision of Duodenum, Via Natural or Artificial Opening Endoscopic, Diagnostic (ICD-10-PCS; principal; 2023-05-11 07:30)
DX: R13.10 Dysphagia, unspecified (principal); K21.00 Gastro-esophageal reflux disease with esophagitis, without bleeding; E66.9 Obesity, unspecified; Z68.34 Body mass index [BMI] 34.0-34.9, adult; Z95.0 Presence of cardiac pacemaker
CPT/HCPCS: 43239; J7120

== ENCOUNTER 2023-07-06 10:54 | Outpatient (CLI) | payer MEDICAID ==
[2023-07-06 11:13] LABS: BASOPHILS # (AUTO) 0.1 10^3/uL (0.0-0.1); EOSINOPHILS # (AUTO) 0.1 10^3/uL (0.0-0.7); EOSINOPHILS % (AUTO) 1.9 %; HCT - HEMATOCRIT 41.8 % (37.0-47.0); HGB - HEMOGLOBIN 13.5 g/dL (12.0-16.0); LYMPHOCYTES # (AUTO) 1.6 10^3/uL (1.5-3.5); LYMPHOCYTES % (AUTO) 26.6 %; MEAN CORPUSCULAR HEMOGLOBIN 28.8 pg (27.0-31.0); MEAN CORPUSCULAR HGB CONC 32.3 g/dL (32.0-36.0); MEAN CORPUSCULAR VOLUME 89.1 fL (81.0-99.0); MEAN PLATELET VOLUME 8.9 fL (7.9-10.8); MONOCYTES # (AUTO) 0.5 10^3/uL (0.0-1.0); MONOCYTES % (AUTO) 7.7 %; NEUTROPHILS # (AUTO) 3.6 10^3/uL (1.5-6.6); NEUTROPHILS % (AUTO) 62.5 %; PLT - PLATELET COUNT 217 10^3/uL (130-450); RED BLOOD COUNT 4.69 10^6/uL (4.20-5.40); RED CELL DISTRIBUTION WIDTH 13.8 % (12.0-15.0); WHITE BLOOD COUNT 5.8 x10^3/uL (4.8-10.8)
[2023-07-06 11:27] LABS: ALBUMIN 4.5 g/dL (3.2-5.5); ALBUMIN/GLOBULIN RATIO 1.6 (1.0-2.2); ALKALINE PHOSPHATASE 93 IU/L (42-121); ALT ALANINE AMINOTRANSFERASE 25 IU/L (10-60); AST ASPARTATE AMINOTRANSFERASE 17 IU/L (10-42); BILIRUBIN,TOTAL 0.7 mg/dL (0.2-1.0); BUN - BLOOD UREA NITROGEN 15 mg/dL (6-20); CALCIUM 10.1 mg/dL (8.5-10.3); CARBON DIOXIDE - CO2 26 mmol/L (21-32); CHLORIDE 104 mmol/L (101-111); CHOL/HDL RATIO 2.9 (<4.4); CHOLESTEROL 190 mg/dL; CREATININE 0.9 mg/dL (0.6-1.3); GFR - MDRD 64 (>89); GLUCOSE 123 mg/dL (74-104); HDL CHOLESTEROL 65 mg/dL; LDL CHOLESTEROL,CALCULATED 97 mg/dL; LDL/HDL RATIO 1.5 (<4.4); POTASSIUM 4.5 mmol/L (3.5-4.5); SODIUM 136 mmol/L (135-145); TOTAL PROTEIN 7.4 g/dL (6.4-8.9); TRIGLYCERIDES 142 mg/dL (48-352); VLDL CHOLESTEROL 28 mg/dL
[2023-07-06 11:42] LABS: THYROID STIMULATING HORMONE 1.62 uIU/mL (0.34-5.60)
[2023-07-06 12:23] LABS: ESTIMATED AVERAGE GLUCOSE 140 mg/dL (70-100); HEMOGLOBIN A1c% 6.5 % (4.27-6.07)
== END 2023-07-06 10:55 | disposition home or self-care (01) ==
LOC: LAB 10:54
PROVIDERS: ATTEND Nurse Practitioner Psychiatric/Mental Health
DX: F31.9 Bipolar disorder, unspecified (principal); R73.03 Prediabetes; Z95.0 Presence of cardiac pacemaker; E78.5 Hyperlipidemia, unspecified; K21.9 Gastro-esophageal reflux disease without esophagitis
CPT/HCPCS: 36415; 80053; 80061; 81599; 83036; 83721; 84443; 85025

== ENCOUNTER 2023-08-28 09:59 | Outpatient (CLI) | payer MEDICAID ==
[2023-08-28 10:24] LABS: BASOPHILS # (AUTO) 0.1 10^3/uL (0.0-0.1); BASOPHILS % (AUTO) 1.2 %; EOSINOPHILS # (AUTO) 0.1 10^3/uL (0.0-0.7); EOSINOPHILS % (AUTO) 1.9 %; HCT - HEMATOCRIT 43.5 % (37.0-47.0); HGB - HEMOGLOBIN 13.9 g/dL (12.0-16.0); LYMPHOCYTES # (AUTO) 1.5 10^3/uL (1.5-3.5); LYMPHOCYTES % (AUTO) 30.8 %; MEAN CORPUSCULAR HEMOGLOBIN 28.3 pg (27.0-31.0); MEAN CORPUSCULAR VOLUME 88.4 fL (81.0-99.0); MEAN PLATELET VOLUME 9.1 fL (7.9-10.8); MONOCYTES # (AUTO) 0.4 10^3/uL (0.0-1.0); MONOCYTES % (AUTO) 7.7 %; NEUTROPHILS # (AUTO) 2.8 10^3/uL (1.5-6.6); NEUTROPHILS % (AUTO) 58.2 %; PLT - PLATELET COUNT 242 10^3/uL (130-450); RED BLOOD COUNT 4.92 10^6/uL (4.20-5.40); RED CELL DISTRIBUTION WIDTH 12.8 % (12.0-15.0); WHITE BLOOD COUNT 4.8 x10^3/uL (4.8-10.8)
[2023-08-28 10:36] LABS: ALBUMIN 4.5 g/dL (3.2-5.5); ALBUMIN/GLOBULIN RATIO 1.6 (1.0-2.2); ALKALINE PHOSPHATASE 90 IU/L (42-121); ALT ALANINE AMINOTRANSFERASE 23 IU/L (10-60); AST ASPARTATE AMINOTRANSFERASE 18 IU/L (10-42); BILIRUBIN,TOTAL 0.7 mg/dL (0.2-1.0); BUN - BLOOD UREA NITROGEN 14 mg/dL (6-20); CALCIUM 10.2 mg/dL (8.5-10.3); CARBON DIOXIDE - CO2 26 mmol/L (21-32); CHLORIDE 105 mmol/L (101-111); CHOLESTEROL 177 mg/dL; GFR - MDRD 56 (>89); GLUCOSE 108 mg/dL (74-104); HDL CHOLESTEROL 60 mg/dL; LDL CHOLESTEROL,CALCULATED 95 mg/dL; LDL/HDL RATIO 1.6 (<4.4); POTASSIUM 4.2 mmol/L (3.5-4.5); SODIUM 138 mmol/L (135-145); TOTAL PROTEIN 7.4 g/dL (6.4-8.9); TRIGLYCERIDES 112 mg/dL (48-352); VLDL CHOLESTEROL 22 mg/dL
[2023-08-28 11:33] LABS: ESTIMATED AVERAGE GLUCOSE 128 mg/dL (70-100); HEMOGLOBIN A1c% 6.1 % (4.27-6.07)
== END 2023-08-28 10:00 | disposition home or self-care (01) ==
LOC: LAB 09:59
PROVIDERS: ATTEND Nurse Practitioner Psychiatric/Mental Health
DX: F31.9 Bipolar disorder, unspecified (principal)
CPT/HCPCS: 36415; 80053; 80061; 81599; 83036; 83721; 85025

== ENCOUNTER 2023-11-06 10:54 | Outpatient (CLI) | payer MEDICAID ==
[2023-11-06 11:35] LABS: ALBUMIN 4.4 g/dL (3.2-5.5); ALBUMIN/GLOBULIN RATIO 1.5 (1.0-2.2); ALKALINE PHOSPHATASE 101 IU/L (42-121); ALT ALANINE AMINOTRANSFERASE 22 IU/L (10-60); AST ASPARTATE AMINOTRANSFERASE 18 IU/L (10-42); BILIRUBIN,TOTAL 0.4 mg/dL (0.2-1.0); BUN - BLOOD UREA NITROGEN 17 mg/dL (6-20); CARBON DIOXIDE - CO2 27 mmol/L (21-32); CHLORIDE 105 mmol/L (101-111); CHOL/HDL RATIO 2.8 (<4.4); CHOLESTEROL 169 mg/dL; CREATININE 1.1 mg/dL (0.6-1.3); GFR - MDRD 50 (>89); GLUCOSE 120 mg/dL (74-104); HDL CHOLESTEROL 61 mg/dL; LDL CHOLESTEROL,CALCULATED 85 mg/dL; LDL/HDL RATIO 1.4 (<4.4); POTASSIUM 4.6 mmol/L (3.5-4.5); SODIUM 138 mmol/L (135-145); TOTAL PROTEIN 7.4 g/dL (6.4-8.9); TRIGLYCERIDES 116 mg/dL (48-352); VLDL CHOLESTEROL 23 mg/dL
[2023-11-06 12:42] LABS: ESTIMATED AVERAGE GLUCOSE 131 mg/dL (70-100); HEMOGLOBIN A1c% 6.2 % (4.27-6.07)
== END 2023-11-06 10:55 | disposition home or self-care (01) ==
LOC: LAB 10:54
PROVIDERS: ATTEND Nurse Practitioner Psychiatric/Mental Health
DX: F31.9 Bipolar disorder, unspecified (principal); F32.1 Major depressive disorder, single episode, moderate; Z79.899 Other long term (current) drug therapy
CPT/HCPCS: 36415; 80053; 80061; 83036; 83721

== ENCOUNTER 2024-02-15 11:51 | Outpatient (CLI) | payer MEDICAID ==
[2024-02-15 12:12] LABS: BASOPHILS # (AUTO) 0.1 10^3/uL (0.0-0.1); BASOPHILS % (AUTO) 0.9 %; EOSINOPHILS % (AUTO) 0.7 %; HCT - HEMATOCRIT 40.1 % (37.0-47.0); HGB - HEMOGLOBIN 12.8 g/dL (12.0-16.0); LYMPHOCYTES # (AUTO) 1.7 10^3/uL (1.5-3.5); LYMPHOCYTES % (AUTO) 29.2 %; MEAN CORPUSCULAR HEMOGLOBIN 28.3 pg (27.0-31.0); MEAN CORPUSCULAR HGB CONC 31.9 g/dL (32.0-36.0); MEAN CORPUSCULAR VOLUME 88.5 fL (81.0-99.0); MONOCYTES # (AUTO) 0.6 10^3/uL (0.0-1.0); MONOCYTES % (AUTO) 9.8 %; NEUTROPHILS # (AUTO) 3.4 10^3/uL (1.5-6.6); NEUTROPHILS % (AUTO) 58.5 %; PLT - PLATELET COUNT 220 10^3/uL (130-450); RED BLOOD COUNT 4.53 10^6/uL (4.20-5.40); RED CELL DISTRIBUTION WIDTH 13.6 % (12.0-15.0); WHITE BLOOD COUNT 5.8 x10^3/uL (4.8-10.8)
[2024-02-15 12:26] LABS: ESTIMATED AVERAGE GLUCOSE 126 mg/dL (70-100)
[2024-02-15 12:37] LABS: ALBUMIN 4.4 g/dL (3.2-5.5); ALBUMIN/GLOBULIN RATIO 1.5 (1.0-2.2); BILIRUBIN,TOTAL 0.5 mg/dL (0.2-1.0); CALCIUM 10.3 mg/dL (8.5-10.3); POTASSIUM 3.9 mmol/L (3.5-4.5); TOTAL PROTEIN 7.4 g/dL (6.4-8.9)
== END 2024-02-15 11:52 | disposition home or self-care (01) ==
LOC: LAB 11:51
PROVIDERS: ATTEND Family Medicine
DX: M62.830 Muscle spasm of back (principal); R73.03 Prediabetes; I49.5 Sick sinus syndrome; R03.0 Elevated blood-pressure reading, without diagnosis of hypertension; Z95.0 Presence of cardiac pacemaker
CPT/HCPCS: 36415; 80053; 83036; 85025

== ENCOUNTER 2024-04-12 13:16 | Outpatient (CLI) | payer MEDICAID ==
[2024-04-12 13:28] LABS: BASOPHILS % (AUTO) 0.2 %; EOSINOPHILS % (AUTO) 0.1 %; HCT - HEMATOCRIT 38.4 % (37.0-47.0); HGB - HEMOGLOBIN 12.5 g/dL (12.0-16.0); MEAN CORPUSCULAR HEMOGLOBIN 28.6 pg (27.0-31.0); MEAN CORPUSCULAR HGB CONC 32.6 g/dL (32.0-36.0); MEAN CORPUSCULAR VOLUME 87.9 fL (81.0-99.0); MEAN PLATELET VOLUME 9.2 fL (7.9-10.8); MONOCYTES # (AUTO) 0.8 10^3/uL (0.0-1.0); MONOCYTES % (AUTO) 5.3 %; NEUTROPHILS # (AUTO) 11.6 10^3/uL (1.5-6.6); NEUTROPHILS % (AUTO) 80.1 %; PLT - PLATELET COUNT 202 10^3/uL (130-450); RED BLOOD COUNT 4.37 10^6/uL (4.20-5.40); RED CELL DISTRIBUTION WIDTH 13.5 % (12.0-15.0); WHITE BLOOD COUNT 14.5 x10^3/uL (4.8-10.8)
[2024-04-12 13:51] LABS: % IRON SATURATION 6 % (20-50); ALBUMIN 4.4 g/dL (3.2-5.5); ALBUMIN/GLOBULIN RATIO 1.8 (1.0-2.2); ALKALINE PHOSPHATASE 95 IU/L (42-121); ALT ALANINE AMINOTRANSFERASE 19 IU/L (10-60); AST ASPARTATE AMINOTRANSFERASE 15 IU/L (10-42); BILIRUBIN,TOTAL 0.6 mg/dL (0.2-1.0); BUN - BLOOD UREA NITROGEN 12 mg/dL (6-20); CALCIUM 9.9 mg/dL (8.5-10.3); CARBON DIOXIDE - CO2 27 mmol/L (21-32); CHLORIDE 102 mmol/L (101-111); CHOL/HDL RATIO 2.4 (<4.4); CHOLESTEROL 156 mg/dL; GFR - MDRD 56 (>89); GLUCOSE 133 mg/dL (74-104); HDL CHOLESTEROL 65 mg/dL; IRON 24 ug/dL (50-212); LDL CHOLESTEROL,CALCULATED 65 mg/dL; POTASSIUM 4.1 mmol/L (3.5-4.5); SODIUM 135 mmol/L (135-145); TOTAL IRON BINDING CAPACITY 382 ug/dL (250-450); TOTAL PROTEIN 6.9 g/dL (6.4-8.9); TRANSFERRIN 273 mg/dL (203-362); TRIGLYCERIDES 128 mg/dL; VLDL CHOLESTEROL 26 mg/dL
[2024-04-12 14:00] LABS: THYROID STIMULATING HORMONE 0.86 uIU/mL (0.34-5.60)
== END 2024-04-12 13:17 | disposition home or self-care (01) ==
LOC: LAB 13:16
PROVIDERS: ATTEND Physician Assistant
DX: R53.83 Other fatigue (principal)
CPT/HCPCS: 36415; 80050; 80061; 82607; 83540; 83721; 84466